=== PATIENT | male | born 1955 | race American Indian/Alaskan Native ===

== ENCOUNTER 2016-05-02 10:56 | Day surgery (SDC) | payer MEDICARE ==
[~2016-05-02 10:56] MED LIST: ANCEF/STERILE WATER 2 GM/20 ML 20 ML IV NR; NACL 0.9% 1000 ML 1,000 ML IV SCH
--- NOTE | 2016-05-02 11:51 | Anesthesia Consultation ---
Anesthesia Consult and Med Hx Date of service: 05/02/16 - Airway Anesthetic Teeth Evaluation: Good ROM Head & Neck: Adequate Mental/Hyoid Distance: Adequate Mallampati Class: Class II Intubation Access Assessment: Probably Good - Pulmonary Exam CTA: Yes - Cardiac Exam Cardiac Exam: RRR - Pre-Operative Health Status ASA Pre-Surgery Classification: ASA3 Proposed Anesthetic Plan: General, MAC - Pulmonary Hx Smoking: No Hx Sleep Apnea: No - Cardiovascular System Hx Hypertension: Yes (FOR 5+ YRS) - Central Nervous System Hx Psychiatric Problems: No - Endocrine Hx Renal Disease: Yes (HD //Thu) Hx End Stage Renal Disease: Yes (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
--- NOTE | 2016-05-02 11:52 | Anesthesia Day of Surgery ---
Anesthesia Day of Surgery - Day of Surgery Patient Examined: Yes Patient H&P Reviewed: Yes Patient is NPO: Yes
[2016-05-02] MEDS ORDERED: ZOFRAN IV PRN (11:53)
[2016-05-02] MEDS ORDERED: NORCO 5/325 PO PRN (11:53)
[2016-05-02] MEDS ORDERED: DILAUDID IV PRN (11:53)
[2016-05-02] MEDS ORDERED: VERSED IV NR (12:00)
[2016-05-02] MEDS ORDERED: PEPCID PO NR (12:00)
[2016-05-02] MEDS ORDERED: SUBLIMAZE ONE ×2 (12:54→12:55)
[2016-05-02] MEDS ORDERED: DIPRIVAN 10 MG/ML IV ONE (12:54)
[2016-05-02] MEDS ORDERED: XYLOCAINE MPF 2% ONE (12:58)
[2016-05-02] MEDS ORDERED: ROBINUL ONE (13:34)
[2016-05-02] MEDS ORDERED: NACL 0.9% IR ONE (13:57)
[2016-05-02] MEDS ORDERED: MARCAINE 0.5% INFILTRATI ONE (13:57)
--- NOTE | 2016-05-02 14:06 | Admit Criteria Form ---
Admission Criteria Documentation: AMBULATORY SURGERY EXCEPTION CRITERIA Ambulatory Surgery Exception Criteria ( Place 'X' for any and all applicable criteria): Surgery or procedure performed on ambulatory basis may require inpatient stay for[A] ANY ONE of the following(1)(2)(3)(4)(5)(6)(7)(8)(9): [X] I. A preoperative situation, condition, or finding that warrants inpatient stay as indicated by ANY ONE of the following: [X] a) Inpatient care needed because of severity of a disease or condition rather than the surgery (eg, severe cardiac or respiratory disease, severe infection) (15) (16 ) (17) (18) [] b) Emergent procedure (eg, angioplasty for acute ischemia)(19) [] c) Complex surgical approach or situation as indicated by ANY ONE of the following(3): [] i) Open approach needed instead of usual endoscopic, transcatheter, or other less invasive procedure [] ii) Difficult approach because of previous operation [] iii) Airway monitoring required after open neck procedures(20)(21) [] iv) Large mass requiring unusually extensive dissection [] v) Additional complicating feature requiring inpatient care (eg, drain management)(22(23): [] d) Major surgery in a pt with high anesthetic risk as indicated by ANY ONE of the following (2)(3)(5)(7)(8): [] i) ASA risk class III or higher (severe systemic disease impairing function) [D] [] ii) Advanced age (eg, older than 85 years)(14)(24) [] iii) Symptomatic heart failure(25) [] iv) Symptomatic asthma or COPD(8)(21) [] v) Morbid obesity with hemodynamic or respiratory problems(20)( 21)(26)(27) [] vi) Obstructive sleep apnea(20)(21) [] vii) Former premature infants who are younger than 60 weeks [] viii) High risk for severe postoperative abnormalities (eg, severe postoperative hypocalcemia after parathyroidectomy for severe hyperparathyroidism)(27)( 28) [] ix) Unstable angina(25) [] e) Drug-related risk requiring inpatient stay as indicated by ANY ONE of the following(5)(10)(14)(32)(33) [] i) Procedure requires discontinuing drugs or other therapy (eg , antiarrhythmic medication, antiseizure medication), which necessitates inpatient observation or treatment.(18)(31) [] ii) Major surgery and high risk drug use as indicated by ANY ONE of the following: [] 1) Active abuse of cocaine or similar drug [] 2) Monoamine oxidase inhibitor use [] 3) Other drug identified as posing risk [] f) Inadequate outpatient care situation as indicated by ANY ONE of the following(5)(10)(14)(32)(33) [] i) Patient lives remote from medical facility and procedure has urgent complication potential, and temporary nearby residence cannot be arranged [] ii) Patient will have postprocedure incapacitation and inadequate assistance at home, or alternative level of care cannot be arranged. [] iii) Patient will have long general anesthesia or procedure side effect resolution time, and competent person to stay with patient on first postoperative night at home or alternative level of care cannot be arranged. []iv) Other inadequate outpatient situation that cannot be handled by other means [] II. A perioperative event, condition, or finding that warrants inpatient stay as indicated by ANY ONE of the following (1)(2)(3): [] a) Inadequate physiologic recovery: cardiovascular, respiratory, or hemodynamic status not normal or near preoperative baseline(18) [] b) Hemodynamic instability [] c) Patient not alert with near normal or baseline mental status [] d) Temperature not normal or as expected and not appropriate for outpatient treatment of condition [] e) Ambulatory or appropriate activity level status not yet achieved post procedure [E](34)(35)(36) [] f) Operative site not appropriate (eg, unexpected or excessive drainage or bleeding) [] g) Postoperative effects not resolved or adequately managed (eg, significant pain or vomiting not appropriate for outpatient or next level of care)(10)(12) [] h) Complicating features requiring inpatient care as indicated by ANY ONE of the following(37): [] i) Severe complications of procedure (eg, bowel injury, airway compromise, vascular injury,severe hemorrhage) [] ii) Extensive (eg, dissection far beyond usual scope of procedure ) or prolonged (eg, 120 minutes beyond usual) surgery needed requiring inpatient postoperative care [] iii) Conversion to an open or complex procedure that requires inpatient care (eg, open vs laparoscopic cholecystectomy, abdominal vs vaginal hysterectomy)(38) [] iv) Comorbid condition or test result identified during or post procedure that requires inpatient care (7) [] v) Malignant hyperthermia(30) [] vi) Other complicating feature requiring inpatient care(22)(23) Inpatient stay may be needed until ALL of the following are present (1)(2)(3)(4) (5)(6)(10)(14)(33)(40): []a) Physiologic recovery: cardiovascular, respiratory, and hemodynamic status normal or near preoperative baseline []b) Hemodynamic stability []c) Patient alert, with near normal or baseline mental status []d) Temperature appropriate: patient afebrile or temperature appropriate for outpt treatment of condition []e) Activity level appropriate: ambulatory or appropriate activity level post procedure []f) Operative site appropriate as indicated by ALL of the following: []i) Site dry or with expected drainage []ii) Any blood noted is as expected for procedure. []g) Postoperative effects resolved or managed as indicated by ALL of the following: []i) Pain management appropriate for outpatient (or next level of) care(10) []ii) Minimal nausea and vomiting: if present, successfully treated with oral medication(12) []iii) Headache, dizziness, or drowsiness (if present) are mild. []h) Voiding status acceptable as indicated by ANY ONE of the following: []i) Voiding spontaneously []ii) No voiding but instructions given for follow-up in 6 to 8 hours []iii) Urinary catheter in place, and instructions given for follow-up []i) Complicating features requiring inpatient care manageable at a lower level of care(37) []j) Comorbid conditions manageable at a lower level of care(37) The original [employer] content created by [employer] has been revised. The portions of the content which have been revised are identified through the use of italic text or in bold, and [employer] has neither reviewed nor approved the modified material. All other unmodified content is copyright [employer]. Please see references footnoted in the original [employer] edition 2016 Admission Criteria Met: Yes
[2016-05-02] MEDS ORDERED: HEPARIN 10,000 UNITS/10 ML 1,000 UNIT in NACL 0.9% 250ML 250 ML IR ONE (14:23)
[2016-05-02] MEDS ORDERED: ePHEDrine SULFATE ONE (14:44)
[2016-05-02] MEDS ORDERED: ZOFRAN ONE (15:06)
--- NOTE | 2016-05-02 15:15 | Short Stay Summary ---
Short Stay Documentation Date of service: 05/02/16 Narrative H&P: See H&P - History H&P: obtained from office - Allergies and Medications Current Medications: Allergies No Known Allergies Allergy (Unverified 02/21/16 13:12) Home Medications Medication Instructions Recorded Confirmed Last Taken Type Gabapentin [Neurontin] 300 mg PO QDAY 02/21/16 05/02/16 05/01/16 History Insulin Aspart [NovoLOG Flexpen] 10 units SQ AC 02/21/16 05/02/16 05/01/16 History Insulin Glargine [Lantus] 20 units SQ QHS 02/21/16 05/02/16 05/01/16 History Calcium Acetate [Calcium Acetate] 05/02/16 05/01/16 History Procardia Xl 05/02/16 04/30/16 History cloNIDine 05/02/16 04/30/16 History Active Medications Famotidine (Pepcid) 20 mg PO PREOP NR Stop: 05/02/16 23:00 Last Admin: 05/02/16 12:30 Dose: 20 mg Hydromorphone HCl (Dilaudid) 0.5 mg IV Q10MIN PRN PRN Reason: Pain , Severe (7-10) Stop: 05/05/16 11:54 Cefazolin Sodium (Ancef/Sterile Water 2 Gm/20 Ml) 20 mls @ 80 mls/hr IV PREOP NR PRN Reason: Protocol Stop: 05/02/16 23:59 Sodium Chloride (Nacl 0.9% 1000 Ml) 1,000 mls @ 42 mls/hr IV DIRECT THOMAS Last Admin: 05/02/16 12:20 Dose: 42 mls/hr Midazolam HCl (Versed) 2 mg IV PREOP NR Stop: 05/02/16 23:59 Last Admin: 05/02/16 13:05 Dose: 2 mg - Brief post op/procedure progress note Date of procedure: 05/02/16 Pre-op diagnosis: ESRD Post-op diagnosis: same Procedure: Creation of left brachiobasilic AVF Anesthesia: DIANAA Surgeon: CHRISTOPHER LEE Estimated blood loss: 50-100ml Pathology: none Condition: stable - Disposition Condition at discharge: Good Disposition: DISCHARGED TO HOME OR SELFCARE Short Stay Discharge Plan Activity: other (No heavy lifting with left arm) Wound: open to air, keep clean and dry, other (okay to wash the wound with soap and water but do not soak in water) Follow up with: CHRISTOPHER LEE MD [Staff Physician] - 7 Days Prescriptions: HYDROcodone/APAP 7.5-325 [[place] 7.5/325] 1 each PO Q6HR PRN #60 tablet PRN Reason: Pain
--- NOTE | 2016-05-02 15:26 | Operative Report ---
Operative Report Operative Report: Date of procedure: 05/02/2016 Pre-operative diagnosis: End-stage Renal Disease Post-operative diagnosis: End-stage Renal Disease Procedure(s): Creation of Left Brachial Artery to Basilic Arteriovenous Fistula Surgeon: Edd Sales MD Monitor Worker: None Anesthesia: Gen. endotracheal anesthesia EBL: Minimal Counts: Correct Complications: None Condition: Stable Findings: Successful creation of left brachial basilic arteriovenous fistula. The fistula was patent however pulsatility in the fistula. Specimen: None Indication: The patient is a 60-year-old male with a history of end-stage renal disease was previously on dialysis distal brachial cephalic arteriovenous vessel. That is thrombosed and is not in need of long-term access. He was given the risks, benefits, and alternative procedures and consented to the procedure. Description of Procedure: The patient was brought to the operating room and laid in supine position after general endotracheal anesthesia was administered the patient was prepped and draped in normal sterile fashion. After anesthetizing the skin a transverse incision was created just below the antecubital crease. Dissection was carried down to the the basilic vein using sharp dissection. The vein was dissected out both proximally and distally and suture ligated and divided distally. I then ran a 3 Serjio proximally in the vein, to ensure patency of the vein. I then flushed the vein with heparinized saline and controlled flow with a bulldog clamp. I then dissected out the brachial artery through this incision circumferentially both proximal and distal and controlled th artery with vessel loops. I placed the vessel loops on tension, controlling the flow through the artery, and created an arteriotomy using an 11 blade and Bagi scissors. I created an end to side anastomosis between the basilic vein and brachial artery using a 6-0 Prolene in running fashion. Prior to completing the anastomosis I flushed the artery both proximally and distally and then advanced a 3 Serjio proximally to break the spasm in the artery. I completed the anastomosis and removed all vessel loops allowing flow into the fistula which had an excellent thrill. I achieved hemostasis with a combination of direct pressure and electrocautery. Once hemostasis was achieved I anesthetized the wound with Marcaine. I closed the wound in 2 layers using 3-0 Vicryl in a running fashion to close the deep dermal layer and 4-0 Monocryl in a running fashion in the subcuticular layer. I dressed the wound with Surgicel. The patient tolerated the procedure well, all sponge needle and instrument counts were correct. The patient was taken to recovery in stable condition.
--- NOTE | 2016-05-02 16:16 | Post Anesthesia Evaluation ---
- Post Anesthesia Evaluation Patient Participated: Yes Airway Patent: Yes Stable Respiratory Function: Yes Temp > 96.8F: Yes Pain Manageable: Yes Adequeate Hydration: Yes Anesthesia Complications: No Block Receding Appropriately: Not Applicable
[2016-05-02 18:20] VITALS: BP 145/78
== END 2016-05-02 19:00 | disposition home or self-care (01) ==
LOC: OR 10:56
PROVIDERS: ATTEND Surgery Vascular Surgery
DX: E11.22 Type 2 diabetes mellitus with diabetic chronic kidney disease (principal); I12.0 Hypertensive chronic kidney disease with stage 5 chronic kidney disease or end stage renal disease; N18.6 End stage renal disease; E78.00 Pure hypercholesterolemia, unspecified; D64.9 Anemia, unspecified; Z99.2 Dependence on renal dialysis; Z83.3 Family history of diabetes mellitus; Z98.890 Other specified postprocedural states; Z98.42 Cataract extraction status, left eye; Z98.41 Cataract extraction status, right eye
CPT/HCPCS: 36415; 36821; 82962; 84132; C1757; J0690; J1644; J2250; J2405; J2704; J3010; J7030; J7050

== ENCOUNTER 2016-07-21 06:56 | Day surgery (SDC) | payer MEDICARE ==
[~2016-07-21 06:56] MED LIST changes: +ANCEF/STERILE WATER 2 GM/20 ML 2 GM/20 ML SYRINGE IV NR; -ANCEF/STERILE WATER 2 GM/20 ML 20 ML IV NR; +PEPCID PO NR
[2016-07-21] MEDS ORDERED: ZOFRAN IV PRN (09:20)
[2016-07-21] MEDS ORDERED: DILAUDID IV PRN (09:20)
[2016-07-21] MEDS ORDERED: SUBLIMAZE IV NR (09:20)
[2016-07-21] MEDS ORDERED: VERSED IV NR (09:25)
--- NOTE | 2016-07-21 09:25 | Anesthesia Consultation ---
Anesthesia Consult and Med Hx Date of service: 07/21/16 - Airway Anesthetic Teeth Evaluation: Good ROM Head & Neck: Adequate Mental/Hyoid Distance: Adequate Mallampati Class: Class II Intubation Access Assessment: Probably Good - Pulmonary Exam CTA: Yes - Cardiac Exam Cardiac Exam: RRR - Pre-Operative Health Status ASA Pre-Surgery Classification: ASA4 Proposed Anesthetic Plan: MAC Nerve Block: supraclavicular - Pulmonary Hx Smoking: No Hx Asthma: No Hx Sleep Apnea: No - Cardiovascular System Hx Hypertension: Yes (FOR 5+ YRS) - Central Nervous System CVA: Yes (2011, no residual weakness) - Endocrine Hx Renal Disease: Yes Hx End Stage Renal Disease: Yes (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
--- NOTE | 2016-07-21 09:32 | Anesthesia Day of Surgery ---
Anesthesia Day of Surgery - Day of Surgery Patient Examined: Yes Patient H&P Reviewed: Yes Patient is NPO: Yes
[2016-07-21] MEDS ORDERED: MARCAINE-EPI 0.5%-1:200,000 INFILTRATI ONE (09:33)
[2016-07-21] MEDS ORDERED: DIPRIVAN 10 MG/ML IV ONE ×3 (11:27→12:17)
[2016-07-21] MEDS ORDERED: XYLOCAINE MPF 2% ONE (11:33)
[2016-07-21] MEDS ORDERED: HEPARIN 10,000 UNITS/10 ML 2,000 UNIT in NACL 0.9% 500 ML 500 ML IR ONE (12:02)
[2016-07-21] MEDS ORDERED: HEPARIN 10,000 UNITS/10 ML IV ONE (12:05)
[2016-07-21] MEDS ORDERED: NACL 0.9% IR ONE (12:06)
[2016-07-21] MEDS ORDERED: SODIUM BICARBONATE INFILTRATI ONE (12:06)
[2016-07-21] MEDS ORDERED: MARCAINE 0.5% INFILTRATI ONE (12:06)
[2016-07-21] MEDS ORDERED: XYLOCAINE 1%/ EPI 1:100,000 INFILTRATI ONE (12:07)
[2016-07-21] MEDS ORDERED: NACL 0.9% 500 ML IV ONE (12:07)
--- NOTE | 2016-07-21 13:17 | Short Stay Summary ---
Short Stay Documentation Date of service: 07/21/16 Narrative H&P: See H&P - History H&P: obtained from office - Allergies and Medications Current Medications: Allergies No Known Allergies Allergy (Unverified 02/21/16 13:12) Home Medications Medication Instructions Recorded Confirmed Last Taken Type Gabapentin [Neurontin] 300 mg PO QDAY 02/21/16 07/21/16 07/19/16 History Insulin Aspart [NovoLOG Flexpen] 10 units SQ AC 02/21/16 07/21/16 07/19/16 13: 00 History 12 UNITS Insulin Glargine [Lantus VIAL] 20 units SQ QHS 02/21/16 07/21/16 07/19/16 22:00 History 20 UNITS Calcium Acetate 667 mg PO QDAY 05/02/16 07/21/16 07/20/16 History Procardia Xl 30 mg PO QDAY 05/02/16 07/21/16 07/19/16 22:00 History Active Medications Famotidine (Pepcid) 20 mg PO PREOP NR Stop: 07/21/16 23:00 Last Admin: 07/21/16 09:24 Dose: 20 mg Fentanyl (Sublimaze) 100 mcg IV ONCE NR Stop: 07/21/16 18:00 Last Admin: 07/21/16 09:45 Dose: 50 mcg Hydromorphone HCl (Dilaudid) 0.25 mg IV Q10MIN PRN PRN Reason: Pain, Moderate (4-6) Stop: 07/21/16 18:00 Cefazolin Sodium (Ancef/Sterile Water 2 Gm/20 Ml) 2 gm in 20 mls @ 80 mls/hr IV PREOP NR PRN Reason: Protocol Stop: 07/21/16 23:59 Sodium Chloride (Nacl 0.9% 1000 Ml) 1,000 mls @ 42 mls/hr IV DIRECT THOMAS Last Admin: 07/21/16 09:30 Dose: 42 mls/hr Midazolam HCl (Versed) 2 mg IV PREOP NR Stop: 07/21/16 23:59 Last Admin: 07/21/16 09:45 Dose: 2 mg Ondansetron HCl (Zofran) 4 mg IV ONCE PRN PRN Reason: Nausea And Vomiting Stop: 07/21/16 18:00 - Brief post op/procedure progress note Date of procedure: 07/21/16 Pre-op diagnosis: End-Stage Renal Disease Post-op diagnosis: same Procedure: One Stage Creation of Left Brachial Basilic Arteriovenous Fistula Anesthesia: MAC, regional Surgeon: CHRISTOPHER LEE Estimated blood loss: minimal Pathology: none Condition: stable - Disposition Condition at discharge: Good Disposition: DISCHARGED TO HOME OR SELFCARE Short Stay Discharge Plan Activity: other (no heavy lifting with left arm) Wound: open to air, keep clean and dry, other (okay to wash the wound with soap and water but do not soak in water) Follow up with: CHRISTOPHER LEE MD [Staff Physician] - 14 Days Prescriptions: HYDROcodone/APAP 7.5-325 [[place] 7.5/325] 1 each PO Q6HR PRN #90 tablet PRN Reason: Pain
--- NOTE | 2016-07-21 13:26 | Operative Report ---
Operative Report Operative Report: Date of procedure: 07/21/2016 Pre-operative diagnosis: End-stage renal disease Post-operative diagnosis: Same Procedure(s): 1 stage Operation of Left Brachiobasilic AV Fistula Surgeon: Edd Sales MD [employer] Career Manager: None Anesthesia: Regional/MAC EBL: Minimal Counts: Correct Complications: None Condition: Stable Findings: Successful creation of left brachiobasilic fistula with excellent thrill. Specimen: None Indication: The patient is a 61-year-old male with a history of end-stage renal disease who had a previous creation of a left brachiobasilic arteriovenous fistula. The branch used to create the arterial anastomosis became sclerotic and thrombosed however the basilic vein remained patent. The patient was scheduled for creation of a brachiobasilic arteriovenous fistula however since the vein had previously had some arterial flow I felt that he would benefit from creation of a 1 stage procedure. He was given the risks, benefits, and alternative procedures and consented to procedure. Description of Procedure: The patient was brought to the operating room and laid in supine position after he was adequately sedated his left arm was prepped and draped in normal sterile fashion. A longitudinal incision was then created on the medial aspect of the arm centered over the fistula extending from the axillary crease to the antecubital crease. Sharp dissection was used to continue the dissection down to the basilic vein. The vein was then dissected circumferentially and all side branches were suture ligated and divided. A Miracle-Wick tunneler was then used to tunnel from the distal part of the incision towards the proximal portion of the incision and a lateral and slightly curved direction. The vein was then marked on the anterior surface, to prevent twisting , and the outflow was controlled with bulldog clamps. The brachial artery was dissected circumferentially at the distal portion of the incision and controlled with vascular loops. The vein was secured to the Miracle-Wick tunneler with 2-0 silk and then pulled retrograde through the tunnel. I flushed the venous outflow with heparinized saline to assure that there was no evidence of twist or kinks. I then performed an end-to-side anastomosis between the basilic vein and the brachial artery using 6-0 Prolene in running fashion. Prior to completing the anastomosis I flushed the artery as well as the vein to ensure there was no clot or debris. I then completed the anastomosis and removed all clamps allowing flow through the fistula which had an excellent thrill. I achieved hemostasis in the wound with a combination of direct pressure and the clot. I then closed the wound in 2 layers using a 3-0 Vicryl in running fashion in the deep dermal layer and a 4-0 Monocryl in running fashion in the subcuticular. I then dressed the wound with Surgicel. The patient tolerated the procedure well , all sponge needle and instrument counts were correct, the patient was taken to the recovery area in stable condition.
--- NOTE | 2016-07-21 14:07 | Post Anesthesia Evaluation ---
- Post Anesthesia Evaluation Patient Participated: Yes Airway Patent: Yes Stable Respiratory Function: Yes Temp > 96.8F: Yes Pain Manageable: Yes (Pain free) Adequeate Hydration: Yes Anesthesia Complications: No Block Receding Appropriately: Not Applicable
[2016-07-21 16:10] VITALS: BP 163/97
--- NOTE | 2016-07-22 01:42 | Admit Criteria Form ---
Admission Criteria Documentation: AMBULATORY SURGERY EXCEPTION CRITERIA Ambulatory Surgery Exception Criteria ( Place 'X' for any and all applicable criteria): Surgery or procedure performed on ambulatory basis may require inpatient stay for[A] ANY ONE of the following(1)(2)(3)(4)(5)(6)(7)(8)(9): [X] I. A preoperative situation, condition, or finding that warrants inpatient stay as indicated by ANY ONE of the following: [] a) Inpatient care needed because of severity of a disease or condition rather than the surgery (eg, severe cardiac or respiratory disease, severe infection) (15) (16 ) (17) (18) [] b) Emergent procedure (eg, angioplasty for acute ischemia)(19) [] c) Complex surgical approach or situation as indicated by ANY ONE of the following(3): [] i) Open approach needed instead of usual endoscopic, transcatheter, or other less invasive procedure [] ii) Difficult approach because of previous operation [] iii) Airway monitoring required after open neck procedures(20)(21) [] iv) Large mass requiring unusually extensive dissection [] v) Additional complicating feature requiring inpatient care (eg, drain management)(22(23): [X] d) Major surgery in a pt with high anesthetic risk as indicated by ANY ONE of the following (2)(3)(5)(7)(8): [X] i) ASA risk class III or higher (severe systemic disease impairing function) [D] [] ii) Advanced age (eg, older than 85 years)(14)(24) [] iii) Symptomatic heart failure(25) [] iv) Symptomatic asthma or COPD(8)(21) [] v) Morbid obesity with hemodynamic or respiratory problems(20)( 21)(26)(27) [] vi) Obstructive sleep apnea(20)(21) [] vii) Former premature infants who are younger than 60 weeks [] viii) High risk for severe postoperative abnormalities (eg, severe postoperative hypocalcemia after parathyroidectomy for severe hyperparathyroidism)(27)( 28) [] ix) Unstable angina(25) [] e) Drug-related risk requiring inpatient stay as indicated by ANY ONE of the following(5)(10)(14)(32)(33) [] i) Procedure requires discontinuing drugs or other therapy (eg , antiarrhythmic medication, antiseizure medication), which necessitates inpatient observation or treatment.(18)(31) [] ii) Major surgery and high risk drug use as indicated by ANY ONE of the following: [] 1) Active abuse of cocaine or similar drug [] 2) Monoamine oxidase inhibitor use [] 3) Other drug identified as posing risk [] f) Inadequate outpatient care situation as indicated by ANY ONE of the following(5)(10)(14)(32)(33) [] i) Patient lives remote from medical facility and procedure has urgent complication potential, and temporary nearby residence cannot be arranged [] ii) Patient will have postprocedure incapacitation and inadequate assistance at home, or alternative level of care cannot be arranged. [] iii) Patient will have long general anesthesia or procedure side effect resolution time, and competent person to stay with patient on first postoperative night at home or alternative level of care cannot be arranged. []iv) Other inadequate outpatient situation that cannot be handled by other means [] II. A perioperative event, condition, or finding that warrants inpatient stay as indicated by ANY ONE of the following (1)(2)(3): [] a) Inadequate physiologic recovery: cardiovascular, respiratory, or hemodynamic status not normal or near preoperative baseline(18) [] b) Hemodynamic instability [] c) Patient not alert with near normal or baseline mental status [] d) Temperature not normal or as expected and not appropriate for outpatient treatment of condition [] e) Ambulatory or appropriate activity level status not yet achieved post procedure [E](34)(35)(36) [] f) Operative site not appropriate (eg, unexpected or excessive drainage or bleeding) [] g) Postoperative effects not resolved or adequately managed (eg, significant pain or vomiting not appropriate for outpatient or next level of care)(10)(12) [] h) Complicating features requiring inpatient care as indicated by ANY ONE of the following(37): [] i) Severe complications of procedure (eg, bowel injury, airway compromise, vascular injury,severe hemorrhage) [] ii) Extensive (eg, dissection far beyond usual scope of procedure ) or prolonged (eg, 120 minutes beyond usual) surgery needed requiring inpatient postoperative care [] iii) Conversion to an open or complex procedure that requires inpatient care (eg, open vs laparoscopic cholecystectomy, abdominal vs vaginal hysterectomy)(38) [] iv) Comorbid condition or test result identified during or post procedure that requires inpatient care (7) [] v) Malignant hyperthermia(30) [] vi) Other complicating feature requiring inpatient care(22)(23) Inpatient stay may be needed until ALL of the following are present (1)(2)(3)(4) (5)(6)(10)(14)(33)(40): []a) Physiologic recovery: cardiovascular, respiratory, and hemodynamic status normal or near preoperative baseline []b) Hemodynamic stability []c) Patient alert, with near normal or baseline mental status []d) Temperature appropriate: patient afebrile or temperature appropriate for outpt treatment of condition []e) Activity level appropriate: ambulatory or appropriate activity level post procedure []f) Operative site appropriate as indicated by ALL of the following: []i) Site dry or with expected drainage []ii) Any blood noted is as expected for procedure. []g) Postoperative effects resolved or managed as indicated by ALL of the following: []i) Pain management appropriate for outpatient (or next level of) care(10) []ii) Minimal nausea and vomiting: if present, successfully treated with oral medication(12) []iii) Headache, dizziness, or drowsiness (if present) are mild. []h) Voiding status acceptable as indicated by ANY ONE of the following: []i) Voiding spontaneously []ii) No voiding but instructions given for follow-up in 6 to 8 hours []iii) Urinary catheter in place, and instructions given for follow-up []i) Complicating features requiring inpatient care manageable at a lower level of care(37) []j) Comorbid conditions manageable at a lower level of care(37) The original [employer] content created by [employer] has been revised. The portions of the content which have been revised are identified through the use of italic text or in bold, and [facility] [employer] has neither reviewed nor approved the modified material. All other unmodified content is copyright [employer]. Please see references footnoted in the original [employer] edition 2016 Admission Criteria Met: Yes
== END 2016-07-21 17:09 | disposition home or self-care (01) ==
LOC: OR 06:56
PROVIDERS: ATTEND Surgery Vascular Surgery
DX: T82.868A Thrombosis due to vascular prosthetic devices, implants and grafts, initial encounter (principal); E11.22 Type 2 diabetes mellitus with diabetic chronic kidney disease; I12.0 Hypertensive chronic kidney disease with stage 5 chronic kidney disease or end stage renal disease; N18.6 End stage renal disease; D64.9 Anemia, unspecified; Z99.2 Dependence on renal dialysis; Z98.890 Other specified postprocedural states; Z72.89 Other problems related to lifestyle; Z79.4 Long term (current) use of insulin; Z79.899 Other long term (current) drug therapy; Z86.73 Personal history of transient ischemic attack (TIA), and cerebral infarction without residual deficits; Y83.2 Surgical operation with anastomosis, bypass or graft as the cause of abnormal reaction of the patient, or of later complication, without mention of misadventure at the time of the procedure
CPT/HCPCS: 36415; 36819; 64450; 82962; 84132; C1757; J0690; J1644; J2250; J2704; J3010; J7030; J7040; J1815

== ENCOUNTER 2018-09-19 19:12 | Emergency (ER) | payer MEDICARE ==
--- NOTE | 2018-09-19 19:22 | Emergency Department Report ---
- General Stated Complaint: CHEST PAIN Time Seen by Provider: 09/19/18 19:17 Source: patient - History of Present Illness Initial Comments: 63-year-old male presents to ED with URI symptoms 3 weeks. Patient reports cough, chest pain only with cough. Denies fever. History of ESRD, last dialyzed yesterday. Patient states has been using OTC meds for the cough, but has not been helping. MD Complaint: cough -: week(s) (3) Severity: moderate Consistency: intermittent Improves With: OTC cold medicine Worsens With: nothing Associated Symptoms: cough, chest pain (with cough), shortness of breath. denies: fever, chills Treatments Prior to Arrival: "cold medicine" - Related Data Home Medications Medication Instructions Recorded Confirmed Last Taken Gabapentin [Neurontin] 300 mg PO QDAY 02/21/16 07/21/16 07/19/16 Insulin Aspart [NovoLOG Flexpen] 10 units SQ AC 02/21/16 07/21/16 07/19/16 13:00 12 UNITS Insulin Glargine [Lantus VIAL] 20 units SQ QHS 02/21/16 07/21/16 07/19/16 22:00 20 UNITS Calcium Acetate 667 mg PO QDAY 05/02/16 07/21/16 07/20/16 Procardia Xl 30 mg PO QDAY 05/02/16 07/21/16 07/19/16 22:00 Previous Rx's Medication Instructions Recorded Last Taken Type HYDROcodone/APAP 7.5-325 [[place] 1 each PO Q6HR PRN #90 tablet 07/21/16 Unknown Rx 7.5/325] Albuterol Sulfate [Proventil Hfa] 2 puff IH Q4HR PRN #1 hfa.aer.ad 09/19/18 Unknown Rx Benzonatate [Tessalon Perles] 100 mg PO Q8HR PRN #20 capsule 09/19/18 Unknown Rx traMADol [Ultram] 50 mg PO Q6HR PRN #7 tablet 09/19/18 Unknown Rx Allergies Allergy/AdvReac Type Severity Reaction Status Date / Time No Known Allergies Allergy Unverified 02/21/16 13:12 ED Review of Systems ROS: Stated complaint: CHEST PAIN Other details as noted in HPI Comment: All other systems reviewed and negative Constitutional: denies: chills, fever Respiratory: cough, shortness of breath Cardiovascular: chest pain (with cough only) ED Past Medical Hx - Past Medical History Hx Hypertension: Yes (FOR 5+ YRS) Hx Diabetes: Yes (FOR 20+ YRS) Hx Deep Vein Thrombosis: Yes (left upper AV graft) Hx Renal Disease: Yes Hx Headaches / Migraines: Yes Hx Asthma: No Hx HIV: No - Social History Smoking Status: Never Smoker - Medications Home Medications: Home Medications Medication Instructions Recorded Confirmed Last Taken Type Gabapentin [Neurontin] 300 mg PO QDAY 02/21/16 07/21/16 07/19/16 History Insulin Aspart [NovoLOG Flexpen] 10 units SQ AC 02/21/16 07/21/16 07/19/16 13:00 History 12 UNITS Insulin Glargine [Lantus VIAL] 20 units SQ QHS 02/21/16 07/21/16 07/19/16 22:00 History 20 UNITS Calcium Acetate 667 mg PO QDAY 05/02/16 07/21/16 07/20/16 History Procardia Xl 30 mg PO QDAY 05/02/16 07/21/16 07/19/16 22:00 History HYDROcodone/APAP 7.5-325 [[place] 1 each PO Q6HR PRN #90 tablet 07/21/16 Unknown Rx 7.5/325] Albuterol Sulfate [Proventil Hfa] 2 puff IH Q4HR PRN #1 hfa.aer.ad 09/19/18 Unknown Rx Benzonatate [Tessalon Perles] 100 mg PO Q8HR PRN #20 capsule 09/19/18 Unknown Rx traMADol [Ultram] 50 mg PO Q6HR PRN #7 tablet 09/19/18 Unknown Rx ED Physical Exam - General General appearance: alert, in no apparent distress - Head Head exam: Present: atraumatic, normocephalic - Eye Eye exam: Present: normal appearance - ENT ENT exam: Present: mucous membranes moist - Neck Neck exam: Present: normal inspection - Respiratory Respiratory exam: Present: rhonchi, chest wall tenderness. Absent: respiratory distress - Cardiovascular Cardiovascular Exam: Present: regular rate, normal rhythm - GI/Abdominal GI/Abdominal exam: Present: soft. Absent: distended, tenderness - Extremities Exam Extremities exam: Present: normal inspection - Neurological Exam Neurological exam: Present: alert, oriented X3 - Psychiatric Psychiatric exam: Present: normal affect, normal mood - Skin Skin exam: Present: warm, dry, intact, normal color ED Course Vital Signs 09/19/18 09/19/18 09/19/18 19:18 19:19 19:24 Temperature 99.1 F 99.1 F Pulse Rate 74 72 72 Respiratory 16 22 18 Rate Blood Pressure 154/84 Blood Pressure 129/72 [Right] O2 Sat by Pulse 100 96 100 Oximetry 09/19/18 09/19/18 09/19/18 19:34 19:45 20:00 Temperature Pulse Rate 71 69 Respiratory 11 L 11 L Rate Blood Pressure 129/72 124/60 124/60 Blood Pressure [Right] O2 Sat by Pulse 97 99 100 Oximetry 09/19/18 20:16 Temperature Pulse Rate 70 Respiratory 23 Rate Blood Pressure 112/58 Blood Pressure [Right] O2 Sat by Pulse 100 Oximetry ED Medical Decision Making - Radiology Data Radiology results: report reviewed, image reviewed - Medical Decision Making Cough, chest congestion x 3 weeks. Pt afebrile, O2 sats normal on room air, no respiratory distress. CXR shows no evidence of pneumonia or pulm edema. Pt given rx for albuterol, tessalon, and ultram. Return precautions given. Advised to f/u w/ PCP - Differential Diagnosis pneumonia, pulm edema, bronchitis Critical care attestation.: If time is entered above; I have spent that time in minutes in the direct care of this critically ill patient, excluding procedure time. ED Disposition Clinical Impression: Bronchitis Disposition: DC-01 TO HOME OR SELFCARE Is pt being admited?: No Condition: Stable Instructions: Acute Bronchitis (ED) Prescriptions: Albuterol Sulfate [Proventil Hfa] 2 puff IH Q4HR PRN #1 hfa.aer.ad PRN Reason: Wheezing Benzonatate [Tessalon Perles] 100 mg PO Q8HR PRN #20 capsule PRN Reason: Cough traMADol [Ultram] 50 mg PO Q6HR PRN #7 tablet PRN Reason: Pain Referrals: DREA WEING MD [Primary Care Provider] - 3-5 Days PRIMARY CAREMD [Referring] - 3-5 Days Time of Disposition: 20:11
--- NOTE | 2018-09-19 19:49 | XRay Report ---
PROCEDURE: XR CHEST ROUTINE 2V TECHNIQUE: PA and lateral chest radiographs were obtained. HISTORY: cough COMPARISONS: None. FINDINGS: Frontal and lateral views of the chest were acquired and demonstrate that the heart is mild ly large. There is prominence of perihilar markings which could represent viral pneumonitis or bronch itis. There is no consolidative infiltrate. IMPRESSION: Cardiomegaly Mild prominence of perihilar markings, likely viral pneumonitis or bronchitis This document is electronically signed by Ryan Montemayor MD., Sep 19 2018 07:47:55 PM ET
[2018-09-19 20:24] VITALS: BP 112/58
== END 2018-09-19 20:39 | disposition home or self-care (01) ==
LOC: ED 19:12
DX: J40 Bronchitis, not specified as acute or chronic (principal); G43.909 Migraine, unspecified, not intractable, without status migrainosus; I10 Essential (primary) hypertension; E11.9 Type 2 diabetes mellitus without complications; Z87.442 Personal history of urinary calculi; Z79.4 Long term (current) use of insulin
CPT/HCPCS: 71046; 99283

== ENCOUNTER 2018-09-26 07:09 | Inpatient (IN) | payer MEDICARE ==
[2018-09-26] MEDS ORDERED: ROBITUSSIN AC PO ONE (08:37)
--- NOTE | 2018-09-26 08:39 | Emergency Department Report ---
ED General Adult HPI - General Chief complaint: Dyspnea/Respdistress Stated complaint: CLAUDIA Time Seen by Provider: 09/26/18 08:05 Source: EMS Mode of arrival: Ambulatory Limitations: No Limitations - History of Present Illness Initial comments: The patient presents to the emergency department with a chief complaint of a cough that has been persistent for the last month. Patient is also a hemodialysis patient who is dialysis days are Thursday, , Thursday. Patient states he is taking medications for his cough to no avail over the last month. Patient denies chest pain, headache, abdominal pain -: Gradual Severity scale (0 -10): 0 Consistency: constant Improves with: none Worsens with: none Associated Symptoms: denies other symptoms Treatments Prior to Arrival: none - Related Data Home Medications Medication Instructions Recorded Confirmed Last Taken Gabapentin [Neurontin] 300 mg PO QDAY 02/21/16 07/21/16 07/19/16 Insulin Aspart [NovoLOG Flexpen] 10 units SQ AC 02/21/16 07/21/16 07/19/16 13:00 12 UNITS Insulin Glargine [Lantus VIAL] 20 units SQ QHS 02/21/16 07/21/16 07/19/16 22:00 20 UNITS Calcium Acetate 667 mg PO QDAY 05/02/16 07/21/16 07/20/16 Procardia Xl 30 mg PO QDAY 05/02/16 07/21/16 07/19/16 22:00 Previous Rx's Medication Instructions Recorded Last Taken Type HYDROcodone/APAP 7.5-325 [[place] 1 each PO Q6HR PRN #90 tablet 07/21/16 Unknown Rx 7.5/325] Albuterol Sulfate [Proventil Hfa] 2 puff IH Q4HR PRN #1 hfa.aer.ad 09/19/18 Unknown Rx Benzonatate [Tessalon Perles] 100 mg PO Q8HR PRN #20 capsule 09/19/18 Unknown Rx traMADol [Ultram] 50 mg PO Q6HR PRN #7 tablet 09/19/18 Unknown Rx Allergies Allergy/AdvReac Type Severity Reaction Status Date / Time No Known Allergies Allergy Unverified 02/21/16 13:12 ED Review of Systems ROS: Stated complaint: CLAUDIA Other details as noted in HPI Comment: All other systems reviewed and negative Constitutional: denies: chills, fever Eyes: denies: eye pain, eye discharge, vision change ENT: denies: ear pain, throat pain Respiratory: cough. denies: shortness of breath, wheezing Cardiovascular: denies: chest pain, palpitations Endocrine: no symptoms reported Gastrointestinal: denies: abdominal pain, nausea, diarrhea Genitourinary: denies: urgency, dysuria Musculoskeletal: denies: back pain, joint swelling, arthralgia Skin: denies: rash, lesions Neurological: denies: headache, weakness, paresthesias Psychiatric: denies: anxiety, depression Hematological/Lymphatic: denies: easy bleeding, easy bruising ED Past Medical Hx - Past Medical History Hx Hypertension: Yes (FOR 5+ YRS) Hx Diabetes: Yes (FOR 20+ YRS) Hx Deep Vein Thrombosis: Yes (left upper AV graft) Hx Renal Disease: Yes Hx Headaches / Migraines: Yes Hx Asthma: No Hx HIV: No - Surgical History Additional Surgical History: left arm fistula - Social History Smoking Status: Never Smoker - Medications Home Medications: Home Medications Medication Instructions Recorded Confirmed Last Taken Type Gabapentin [Neurontin] 300 mg PO QDAY 02/21/16 07/21/16 07/19/16 History Insulin Aspart [NovoLOG Flexpen] 10 units SQ AC 02/21/16 07/21/16 07/19/16 13:00 History 12 UNITS Insulin Glargine [Lantus VIAL] 20 units SQ QHS 02/21/16 07/21/16 07/19/16 22:00 History 20 UNITS Calcium Acetate 667 mg PO QDAY 05/02/16 07/21/16 07/20/16 History Procardia Xl 30 mg PO QDAY 05/02/16 07/21/16 07/19/16 22:00 History HYDROcodone/APAP 7.5-325 [[place] 1 each PO Q6HR PRN #90 tablet 07/21/16 Unknown Rx 7.5/325] Albuterol Sulfate [Proventil Hfa] 2 puff IH Q4HR PRN #1 hfa.aer.ad 09/19/18 Unknown Rx Benzonatate [Tessalon Perles] 100 mg PO Q8HR PRN #20 capsule 09/19/18 Unknown Rx traMADol [Ultram] 50 mg PO Q6HR PRN #7 tablet 09/19/18 Unknown Rx ED Physical Exam - General Limitations: No Limitations General appearance: alert, in no apparent distress - Head Head exam: Present: atraumatic, normocephalic - Eye Eye exam: Present: normal appearance, PERRL, EOMI - ENT ENT exam: Present: mucous membranes moist - Neck Neck exam: Present: normal inspection - Respiratory Respiratory exam: Present: normal lung sounds bilaterally, rales. Absent: respiratory distress - Cardiovascular Cardiovascular Exam: Present: regular rate, normal rhythm. Absent: systolic murmur, diastolic murmur, rubs, gallop - GI/Abdominal GI/Abdominal exam: Present: soft, normal bowel sounds. Absent: distended, tenderness - Rectal Rectal exam: Present: deferred - Extremities Exam Extremities exam: Present: normal inspection - Back Exam Back exam: Present: normal inspection - Neurological Exam Neurological exam: Present: alert, oriented X3, CN II-XII intact. Absent: motor sensory deficit - Psychiatric Psychiatric exam: Present: normal affect, normal mood - Skin Skin exam: Present: warm, dry, intact, normal color. Absent: rash ED Course Vital Signs 09/26/18 09/26/18 09/26/18 07:19 08:30 09:47 Temperature 98.5 F Pulse Rate 83 79 Respiratory 18 18 18 Rate Blood Pressure 153/84 Blood Pressure 152/86 [Right] O2 Sat by Pulse 94 94 94 Oximetry ED Medical Decision Making - Lab Data Result diagrams: 09/26/18 08:46 09/26/18 08:46 Lab Results 09/26/18 09/26/18 Range/Units 08:46 08:46 WBC 5.6 (4.5-11.0) K/mm3 RBC 3.62 L (3.65-5.03) M/mm3 Hgb 10.5 L (11.8-15.2) gm/dl Hct 31.6 L (35.5-45.6) % MCV 87 (84-94) fl MCH 29 (28-32) pg MCHC 33 (32-34) % RDW 17.5 H (13.2-15.2) % Plt Count 238 (140-440) K/mm3 Lymph % (Auto) 17.3 (13.4-35.0) % [place] % (Auto) 10.4 H (0.0-7.3) % Eos % (Auto) 2.9 (0.0-4.3) % Baso % (Auto) 0.7 (0.0-1.8) % Lymph # 1.0 L (1.2-5.4) K/mm3 [place] # 0.6 (0.0-0.8) K/mm3 Eos # 0.2 (0.0-0.4) K/mm3 Baso # 0.0 (0.0-0.1) K/mm3 Seg Neutrophils % 68.7 (40.0-70.0) % Seg Neutrophils # 3.9 (1.8-7.7) K/mm3 Sodium 139 (137-145) mmol/L Potassium 4.2 (3.6-5.0) mmol/L Chloride 96.8 L (98-107) mmol/L Carbon Dioxide 28 (22-30) mmol/L Anion Gap 18 mmol/L BUN 30 H (9-20) mg/dL Creatinine 7.0 H (0.8-1.5) mg/dL Estimated GFR 10 ml/min BUN/Creatinine Ratio 4 % Glucose 213 H (75-100) mg/dL Calcium 8.0 L (8.4-10.2) mg/dL Total Bilirubin 0.40 (0.1-1.2) mg/dL AST 32 (5-40) units/L ALT 27 (7-56) units/L Alkaline Phosphatase 143 H (35-129) units/L NT-Pro-B Natriuret Pep 66625 H (0-900) pg/mL Total Protein 7.6 (6.3-8.2) g/dL Albumin 3.5 L (3.9-5) g/dL Albumin/Globulin Ratio 0.9 % - EKG Data -: EKG Interpreted by Me EKG shows normal: sinus rhythm Rate: normal - Radiology Data Radiology results: report reviewed Critical care attestation.: If time is entered above; I have spent that time in minutes in the direct care of this critically ill patient, excluding procedure time. ED Disposition Clinical Impression: Pneumonia Disposition: OP ADMIT IP TO THIS HOSP Is pt being admited?: Yes Does the pt Need Aspirin: No Condition: Fair Instructions: Bacterial Pneumonia (ED) Referrals: DREA EWING MD [Primary Care Provider] - 3-5 Days
[2018-09-26 09:17] LABS: Basophils % (Auto) 0.7 % (0.0-1.8); Eosinophils # (Auto) 0.2 K/mm3 (0.0-0.4); Eosinophils % (Auto) 2.9 % (0.0-4.3); Hematocrit 31.6 % (35.5-45.6); Hemoglobin 10.5 gm/dl (11.8-15.2); Lymphocytes % (Auto) 17.3 % (13.4-35.0); Mean Corpuscular HGB Conc 33 % (32-34); Mean Corpuscular Volume 87 fl (84-94); Monocytes # (Auto) 0.6 K/mm3 (0.0-0.8); Monocytes % (Auto) 10.4 % (0.0-7.3); Platelet Count 238 K/mm3 (140-440); Red Blood Count 3.62 M/mm3 (3.65-5.03); Red Cell Distribution Width 17.5 % (13.2-15.2)
[2018-09-26 09:24] LABS: Albumin 3.5 g/dL (3.9-5)
--- NOTE | 2018-09-26 09:38 | XRay Report ---
PROCEDURE: XR CHEST ROUTINE 2V TECHNIQUE: Chest, 2 views HISTORY: cough COMPARISON: 09/19/2018 FINDINGS: Heart size is upper normal.. There is no pulmonary vascular congestion seen. Mediastinal contours are normal. There is hazy increased density in the left lower lung. Left heart border is partially obscured. Ther e is interstitial thickening which is concerning for interstitial edema. There is no pleural effusion seen. There is no pneumothorax seen. IMPRESSION: Appearance suggests interstitial infiltrate/edema. Suspect additional alveolar infiltrate in the lingula and/or left lower lobe.. This document is electronically signed by Nichole Llamas MD., September 26 2018 10:36:17 AM ET
[2018-09-26] MEDS ORDERED: VANCOMYCIN PHARMACY TO DOSE IV SCH (12:00)
--- NOTE | 2018-09-26 12:00 | History and Physical Report ---
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 Pt states that he has experienced shortness of breath, productive cough of yellow sputum over the past month, with worsening symptoms over the past weak. Pt states that he feels tired, and does not have " a lot of energy". Pt acknowledges subjective fever, but denes chlls, CP, Palpitations, NVD, Trauma, BRBPR, unintentional weight loss, night sweats, prolonged travel/immobility, unilateral leg swelling, calf pain, hemoptysis, or recent ill contacts. EMS notified, and upon arrival the patient was found to be in distress. Pt transported to [facility]. Pt seen and evaluated in ED and found to have symptoms consistent with Pneumonia, ESRD, as well as Bronchitis. Pt initiated on Pneumonia protocol and admitted to medical floor. Nephrology consulted in ED. Previous admission on 12/17/11 reviewed, All listed medication reconciled at time of admission. Past History Past Medical History: diabetes, DVT, ESRD, hypertension, migraines Past Surgical History: Other (LUE AVF) Social history: , lives with family. denies: smoking, alcohol abuse, prescription drug abuse Family history: hypertension Medications and Allergies Allergies Allergy/AdvReac Type Severity Reaction Status Date / Time No Known Allergies Allergy Unverified 02/21/16 13:12 Home Medications Medication Instructions Recorded Confirmed Last Taken Type Gabapentin [Neurontin] 300 mg PO QDAY 02/21/16 07/21/16 07/19/16 History Insulin Aspart [NovoLOG Flexpen] 10 units SQ AC 02/21/16 07/21/16 07/19/16 13:00 History 12 UNITS Insulin Glargine [Lantus VIAL] 20 units SQ QHS 02/21/16 07/21/16 07/19/16 22:00 History 20 UNITS Calcium Acetate 667 mg PO QDAY 05/02/16 07/21/16 07/20/16 History Procardia Xl 30 mg PO QDAY 05/02/16 07/21/16 07/19/16 22:00 History HYDROcodone/APAP 7.5-325 [[place] 1 each PO Q6HR PRN #90 tablet 07/21/16 Unknown Rx 7.5/325] Albuterol Sulfate [Proventil Hfa] 2 puff IH Q4HR PRN #1 hfa.aer.ad 09/19/18 Unknown Rx Benzonatate [Tessalon Perles] 100 mg PO Q8HR PRN #20 capsule 09/19/18 Unknown Rx traMADol [Ultram] 50 mg PO Q6HR PRN #7 tablet 09/19/18 Unknown Rx Active Meds: Active Medications Vancomycin HCl 2,000 mg/ (Sodium Chloride) 540 mls @ 333 mls/hr IV ONCE ONE; Protocol Stop: 09/26/18 13:35 Ceftriaxone Sodium (Rocephin/Ns 2 Gm/100 Ml) 2 gm in 100 mls @ 200 mls/hr IV Q12HR [facility]OMAS; Protocol Review of Systems Constitutional: fever, weakness, no weight loss, no weight gain Ears, nose, mouth and throat: no ear pain, no ear discharge, no tinnitis, no decreased hearing, no nose pain Cardiovascular: no chest pain, no orthopnea, no palpitations, no rapid/irregular heart beat, no edema, no syncope Respiratory: cough, cough with sputum, shortness of breath, no dyspnea on exertion, no congestion Gastrointestinal: no nausea, no vomiting, no diarrhea, no constipation Genitourinary Male: no hematuria, no flank pain, no discharge, no urinary frequency, no urinary hesitancy Rectal: no pain, no incontinence, no bleeding Musculoskeletal: no neck stiffness, no neck pain, no shooting arm pain, no arm numbness/tingling, no low back pain, no shooting leg pain Integumentary: no rash, no pruritis, no sores, no wounds Neurological: no transient paralysis, no paralysis, no weakness, no parathesias, no numbness, no seizures Psychiatric: no anxiety, no memory loss, no change in sleep habits, no sleep disturbances, no hypersomnia, no change in appetite, no change in libido, no suicidal ideation Endocrine: no cold intolerance, no heat intolerance, no polyphagia, no excessive thirst, no polydipsia, no polyuria, no nocturia, no excessive sweating Hematologic/Lymphatic: no easy bruising, no easy bleeding, no lymphadenopathy, no lymphedema Allergic/Immunologic: no urticaria, no allergic rhinitis, no wheezing, no persistent infections, no anaphylaxis, no angioedema Exam - Constitutional Vitals: Temp Pulse Resp BP Pulse Ox 98.5 F 79 18 152/86 94 09/26/18 07:19 09/26/18 09:47 09/26/18 09:47 09/26/18 09:47 09/26/18 09:47 General appearance: Present: mild distress - EENT Eyes: Present: PERRL ENT: hearing intact, clear oral mucosa - Neck Neck: Present: supple, normal ROM - Respiratory Respiratory effort: normal Respiratory: bilateral: diminished, rhonchi - Cardiovascular Heart Sounds: Present: S1 & S2. Absent: rub, click - Extremities Extremities: pulses symmetrical, No edema Peripheral Pulses: within normal limits - Abdominal General gastrointestinal: Present: soft, non-tender, non-distended, normal bowel sounds Male genitourinary: Present: normal - Integumentary Integumentary: Present: clear, warm, dry - Musculoskeletal Musculoskeletal: gait normal, strength equal bilaterally - Psychiatric Psychiatric: appropriate mood/affect, intact judgment & insight - Neurologic Neurologic: CNII-XII intact, moves all extremities Results - Labs CBC & Chem 7: 09/26/18 08:46 09/26/18 08:46 Labs: Abnormal lab results 09/26/18 09/26/18 Range/Units 08:46 08:46 RBC 3.62 L (3.65-5.03) M/mm3 Hgb 10.5 L (11.8-15.2) gm/dl Hct 31.6 L (35.5-45.6) % RDW 17.5 H (13.2-15.2) % [place] % (Auto) 10.4 H (0.0-7.3) % Lymph # 1.0 L (1.2-5.4) K/mm3 Chloride 96.8 L (98-107) mmol/L BUN 30 H (9-20) mg/dL Creatinine 7.0 H (0.8-1.5) mg/dL Glucose 213 H (75-100) mg/dL Calcium 8.0 L (8.4-10.2) mg/dL Alkaline Phosphatase 143 H (35-129) units/L NT-Pro-B Natriuret Pep 18277 H (0-900) pg/mL Albumin 3.5 L (3.9-5) g/dL Assessment and Plan - Patient Problems (1) Pneumonia Current Visit: Yes Status: Acute Plan to address problem: Pneumonia Protocol: IV antibiotic therapy, chest X ray, CT chest, blood cultures, CBC, supplemental oxygen, nebulizer therapy (2) ESRD (end stage renal disease) Current Visit: Yes Status: Acute Plan to address problem: Nephrology consulted in ED, strict I/O, monitor uop q shift, avoid nephrotoxic agents. (3) HTN (hypertension) Current Visit: Yes Status: Acute Qualifiers: Hypertension type: essential hypertension Qualified Code(s): I10 - Essential (primary) hypertension Plan to address problem: Monitor bp q shift, supportive care. (4) Diabetes Current Visit: Yes Status: Acute Plan to address problem: ADA diet, insulin accu check (5) Bronchitis Current Visit: No Status: Acute Plan to address problem: IV antibiotic therapy, IV steroid therapy, supplemental oxygen, nebulizer therapy, NIPPV as clinically indicated. (6) Cardiomyopathy Current Visit: Yes Status: Acute Plan to address problem: Echo, BNP, monitor uop q shift, (7) DVT prophylaxis Current Visit: Yes Status: Acute Plan to address problem: SCD to BLE while in bed, prophylactic
[2018-09-26] MEDS ORDERED: TYLENOL PO PRN (12:07)
[2018-09-26] MEDS ORDERED: ZOFRAN IV PRN (12:07)
[2018-09-26] MEDS ORDERED: SODIUM CHLORIDE FLUSH SYRINGE 10 ML IV PRN (12:07)
[2018-09-26] MEDS ORDERED: ROCEPHIN/NS 1 GM/50 ML 2 GM/100 ML BAG IV ONE (12:29)
[2018-09-26] MEDS: ROCEPHIN/NS 2 GM/100 ML 2 GM/100 ML BAG IV SCH ×2 (12:30→13:11)
[2018-09-26] MEDS ORDERED: NORCO 7.5/325 PO PRN (12:34)
[2018-09-26] MEDS ORDERED: ULTRAM PO PRN (12:34)
[2018-09-26] MEDS ORDERED: VANCOMYCIN 2,000 MG in NACL 0.9% 500 ML 500 ML IV ONE (13:00)
[2018-09-26] MEDS: HYDROMET PO PRN (14:24)
--- NOTE | 2018-09-26 15:05 | Cat Scan Report ---
PROCEDURE: CT CHEST WO CON TECHNIQUE: Computerized axial tomography of the chest was performed without contrast material. This study is performed without intravenous contrast and the sensitivity for pathology, including neoplasm s, adenopathy, abscess, pulmonary embolism and aortic dissection, is reduced. CT DOSE LENGTH PRODUCT: 1100 mGycm HISTORY: pneumonia COMPARISONS: Radiograph 09/26/2018 . FINDINGS: Heart and pericardium: Heart is mildly prominent. There is a small pericardial effusion, measuring 13 mm in thickness inferiorly. Thoracic aorta: Normal. Pulmonary vasculature: Normal. Lymph nodes: Borderline sized left axillary lymph nodes. Lungs: There are diffuse bilateral geographic pattern groundglass attenuation opacities in the perih ilar regions. Small patchy area of airspace consolidation the left lower lobe. There is atelectasis a butting the left pericardium and abutting bilateral pleural effusions. Pleural space: Small layering bilateral pleural effusions, right greater than left. Musculoskeletal structures: No significant abnormality. Upper abdominal structures: No significant abnormality. IMPRESSION: Bilateral geographic groundglass airspace opacities. Patchy airspace consolidation in the left lower lobe. Findings are nonspecific and can be seen with pulmonary edema related to congestive heart failu re. More focal airspace consolidation left lower lobe could also be related to pulmonary edema or inf ectious process/pneumonia. There is prominent heart size and bilateral pleural effusions, which can be seen with congestive hear t failure This document is electronically signed by Kim Malcolm MD., September 26 2018 04:03:31 PM ET
[2018-09-26] MEDS ORDERED: NON-FORMULARY (Insulin Aspart [Novolog Flexpen] 10 UNITS) SQ SCH (16:30)
[2018-09-26] MEDS: HumaLOG SUB-Q SCH (18:45)
[2018-09-26] MEDS: TESSALON PERLES PO PRN (18:54)
[2018-09-26] MEDS: SOLU-Medrol IV SCH (22:26)
[2018-09-26] MEDS: PEPCID PO SCH (22:26)
[2018-09-26] MEDS: LANTUS SUB-Q SCH (22:26)
[2018-09-26] MEDS: SODIUM CHLORIDE FLUSH SYRINGE 10 ML IV SCH (22:27)
[2018-09-27] MEDS: ROCEPHIN/NS 2 GM/100 ML 2 GM/100 ML BAG IV SCH ×2 (01:06→13:40)
[2018-09-27 05:37] LABS: Hematocrit 32.9 % (35.5-45.6); Mean Corpuscular HGB Conc 33 % (32-34); Mean Corpuscular Volume 87 fl (84-94); Platelet Count 265 K/mm3 (140-440); Red Blood Count 3.79 M/mm3 (3.65-5.03); Red Cell Distribution Width 17.5 % (13.2-15.2)
[2018-09-27 06:02] LABS: Calcium 7.8 mg/dL (8.4-10.2)
[2018-09-27 08:21] LABS: Basophils % (Manual) 0 % (0.0-1.8); Eosinophils % (Manual) 0 % (0.0-4.3); Total Cells Counted 100
[2018-09-27 08:22] LABS: Anisocytosis 1+; Giant Platelets Rare; Large Platelets Few; Macrocytosis Few; Platelet Estimate Consistent w Auto; Poikilocytosis Few
[2018-09-27] MEDS: HumaLOG SUB-Q SCH ×3 (08:42→17:42)
[2018-09-27] MEDS ORDERED: PROCARDIA 30 MG PO SCH (10:00)
[2018-09-27] MEDS: PEPCID PO SCH ×2 (10:04→21:55)
[2018-09-27] MEDS: PHOSLO PO SCH (10:04)
[2018-09-27] MEDS: NEURONTIN PO SCH (10:04)
[2018-09-27] MEDS: PROCARDIA XL PO SCH (10:04)
[2018-09-27] MEDS: SODIUM CHLORIDE FLUSH SYRINGE 10 ML IV SCH ×2 (10:05→22:48)
[2018-09-27] MEDS: SOLU-Medrol IV SCH ×2 (10:05→21:55)
--- NOTE | 2018-09-27 11:04 | Consultation ---
History of Present Illness - Reason for Consult Consult date: 09/27/18 end stage renal disease Requesting physician: EDILSON HOBBS - History of Present Illness This is a 63 yo AAM with past medical history of hypertension, ESRD on HD on TTS schedule, anemia of ESRD, secondary hyperparathyroidism, who presents to [facility] ER with complaints of shortness of breath, productive cough of yellow sputum over the past month, with worsening symptoms over the past weak, along with subjective fever, but denes chlls, CP, Palpitations, NVD, BRBPR, unintentional weight loss, night sweats, prolonged travel/immobility, unilateral leg swelling, calf pain, hemoptysis, or recent ill contacts. in ER CT chest was performed which showed findings consistent with LLL pneumonia. pt was admitted for IV ABX treatment and renal consult is requested for management of ESRD/HD Past History Past Medical History: diabetes, DVT, ESRD, hypertension, migraines Past Surgical History: Other (LUE AVF) Social history: , lives with family. denies: smoking, alcohol abuse, prescription drug abuse Family history: hypertension Medications and Allergies Allergies Allergy/AdvReac Type Severity Reaction Status Date / Time No Known Allergies Allergy Unverified 02/21/16 13:12 Home Medications Medication Instructions Recorded Confirmed Last Taken Type Gabapentin [Neurontin] 300 mg PO QDAY 02/21/16 07/21/16 07/19/16 History Insulin Aspart [NovoLOG Flexpen] 10 units SQ AC 02/21/16 07/21/16 07/19/16 13:00 History 12 UNITS Insulin Glargine [Lantus VIAL] 20 units SQ QHS 02/21/16 07/21/16 07/19/16 22:00 History 20 UNITS Calcium Acetate 667 mg PO QDAY 05/02/16 07/21/16 07/20/16 History Procardia Xl 30 mg PO QDAY 05/02/16 07/21/16 07/19/16 22:00 History HYDROcodone/APAP 7.5-325 [[place] 1 each PO Q6HR PRN #90 tablet 07/21/16 Unknown Rx 7.5/325] Albuterol Sulfate [Proventil Hfa] 2 puff IH Q4HR PRN #1 hfa.aer.ad 09/19/18 Unknown Rx Benzonatate [Tessalon Perles] 100 mg PO Q8HR PRN #20 capsule 09/19/18 Unknown Rx traMADol [Ultram] 50 mg PO Q6HR PRN #7 tablet 09/19/18 Unknown Rx Active Meds: Active Medications Acetaminophen (Tylenol) 650 mg PO Q4H PRN PRN Reason: Pain MILD(1-3)/Fever >100.5/GARCÍA Acetaminophen/Hydrocodone Bitart ([place] 7.5/325) 1 each PO Q6HR PRN PRN Reason: Pain Benzonatate (Tessalon Perles) 100 mg PO Q8H PRN PRN Reason: Cough Last Admin: 09/26/18 18:54 Dose: 100 mg Documented by: Calcium Acetate (Phoslo) 667 mg PO QDDIAB [facility] Last Admin: 09/27/18 10:04 Dose: 667 mg Documented by: Famotidine (Pepcid) 10 mg PO BID [facility] Last Admin: 09/27/18 10:04 Dose: 10 mg Documented by: Gabapentin (Neurontin) 300 mg PO QDAY [facility] Last Admin: 09/27/18 10:04 Dose: 300 mg Documented by: Hydrocodone Bit/Homatropine Methylb (Hydromet) 10 ml PO Q6H PRN PRN Reason: Cough Last Admin: 09/26/18 14:24 Dose: 10 ml Documented by: Ceftriaxone Sodium (Rocephin/Ns 2 Gm/100 Ml) 2 gm in 100 mls @ 200 mls/hr IV Q12H [facility]; Protocol Last Admin: 09/27/18 01:06 Dose: 200 mls/hr Documented by: Insulin Glargine (Lantus) 20 units SUB-Q QHS [facility] Last Admin: 09/26/18 22:26 Dose: 20 units Documented by: Insulin Human Lispro (Humalog) 10 unit SUB-Q [facility] Last Admin: 09/27/18 08:42 Dose: Not Given Documented by: Methylprednisolone Sodium Succinate (Solu-Medrol) 20 mg IV Q12HR [facility] Last Admin: 09/27/18 10:05 Dose: 20 mg Documented by: Nifedipine (Procardia Xl) 30 mg PO QDAY [facility] Last Admin: 09/27/18 10:04 Dose: 30 mg Documented by: Ondansetron HCl (Zofran) 4 mg IV Q8H PRN PRN Reason: Nausea And Vomiting Sodium Chloride (Sodium Chloride Flush Syringe 10 Ml) 10 ml IV BID [facility]OM[facility] Last Admin: 09/27/18 10:05 Dose: 10 ml Documented by: Sodium Chloride (Sodium Chloride Flush Syringe 10 Ml) 10 ml IV PRN PRN PRN Reason: LINE FLUSH Tramadol HCl (Ultram) 50 mg PO Q6HR PRN PRN Reason: Pain Review of Systems All systems: negative Constitutional: fever, fatigue, weakness, malaise Respiratory: cough with sputum, shortness of breath Exam - Vital Signs Vital signs: Vital Signs Temp Pulse Resp BP Pulse Ox 98.5 F 83 18 153/84 94 09/26/18 07:19 09/26/18 07:19 09/26/18 07:19 09/26/18 07:19 09/26/18 07:19 - General Appearance General appearance: well-developed, well-nourished, appears stated age EENT: ATNC, PERRL, mucous membranes moist Neck: Present: neck supple Respiratory: Decreased Breath Sounds (L base ) Heart: regular, S1S2 Gastrointestinal: Present: normoactive bowel sounds Integumentary: no rash, other (no edema ) Neurologic: no focal deficit, alert and oriented x3, strength 5/5, CN 3-12 intact Psychiatric: mood/affect appropriate, cooperative Results - Lab Results 09/27/18 05:09 09/27/18 05:09 Most recent lab results Calcium 7.8 mg/dL (8.4-10.2) L 09/27/18 05:09 Assessment and Plan - Patient Problems (1) Pneumonia Current Visit: Yes Status: Acute Plan to address problem: cont IV ABXs with ceftriaxone, no renal adjustment needed. (2) ESRD (end stage renal disease) Current Visit: Yes Status: Acute Plan to address problem: no urgent indication for renal replacement therapy at present. cont HD on TTS schedule. (3) Anemia in ESRD (end-stage renal disease) Current Visit: Yes Status: Acute Plan to address problem: hb at target, no need for additional EPO at present (4) HTN (hypertension) Current Visit: Yes Status: Acute Qualifiers: Hypertension type: essential hypertension Qualified Code(s): I10 - Esse ntial (primary) hypertension Plan to address problem: BP stable, resume home BP regimen (5) Secondary hyperparathyroidism (of renal origin) Current Visit: Yes Status: Acute Plan to address problem: resume home PO4 binders
--- NOTE | 2018-09-27 16:30 | Progress Note ---
Assessment and Plan (1) Pneumonia Current Visit: Yes Status: Acute Plan to address problem: Pneumonia Protocol: Cont IV antibiotic therapy (2) ESRD (end stage renal disease) Current Visit: Yes Status: Acute Plan to address problem: Cont HD as per schedule (3) HTN (hypertension) Current Visit: Yes Status: Acute Qualifiers: Hypertension type: essential hypertension Qualified Code(s): I10 - Essential (primary) hypertension Plan to address problem: Cont antihypertensives (4) Diabetes Current Visit: Yes Status: Acute Plan to address problem: ADA diet, insulin accu check Adjusted Insulin dosage (5) Bronchitis Current Visit: No Status: Acute Plan to address problem: IV antibiotic therapy, IV steroid therapy, supplemental oxygen, nebulizer therapy, NIPPV as clinically indicated. (6) Cardiomyopathy Current Visit: Yes Status: Acute Plan to address problem: Check Echo for EF and Valve function (7) DVT prophylaxis Current Visit: Yes Status: Acute Plan to address problem: Heparin 5000 q12h Subjective Date of service: 09/27/18 Principal diagnosis: CAP Interval history: 63 YO Male with ESRD on HD(T,R,Sa),DM, Migraine Headache, LUE DVT currently not on anticoagulation presents to ED for evaluation. Pt states that he has experienced shortness of breath, productive cough of yellow sputum over the past month, with worsening symptoms over the past weak. Pt states that he feels tired, and does not have enough energy.. Pt acknowledges subjective fever, but denes chlls, CP, Palpitations, NVD, Trauma, BRBPR, unintentional weight loss, night sweats, prolonged travel/immobility, unilateral leg swelling, calf pain, hemoptysis, or recent ill contacts.Patient found to have symptoms consistent with Pneumonia, ESRD, as well as Bronchitis. Pt initiated on Pneumonia protocol and admitted to medical floor. Nephrology consulted in ED. Previous admission on 12/17/11 reviewed, Objective - Constitutional Vitals: Vital Signs - 12hr 09/27/18 09/27/18 09/27/18 05:22 10:07 11:57 Temperature 98.1 F 97.6 F Pulse Rate 82 80 Respiratory 22 18 20 Rate Blood Pressure 156/84 131/63 129/60 O2 Sat by Pulse 90 91 Oximetry 09/27/18 13:50 Temperature Pulse Rate Respiratory Rate Blood Pressure O2 Sat by Pulse 95 Oximetry General appearance: Present: no acute distress, well-nourished - EENT Eyes: PERRL, EOM intact ENT: hearing intact, clear oral mucosa Ears: bilateral: normal - Neck Neck: supple, normal ROM - Respiratory Respiratory effort: normal Respiratory: bilateral: CTA, rales (Scattered) - Breasts Breasts: deferred - Cardiovascular Heart rate: 78 Rhythm: regular Heart Sounds: Present: S1 & S2. Absent: gallop, rub Extremities: pulses intact, No edema, normal color, Full ROM - Gastrointestinal General gastrointestinal: Present: soft, non-tender, non-distended, normal bowel sounds Rectal Exam: deferred - Genitourinary Male genitourinary: normal - Integumentary Integumentary: clear, warm, dry - Musculoskeletal Musculoskeletal: 1, strength equal bilaterally - Neurologic Neurologic: moves all extremities - Psychiatric Psychiatric: memory intact, appropriate mood/affect, intact judgment & insight - Allied health notes Allied health notes reviewed: nursing, case management - Labs CBC & Chem 7: 09/27/18 05:09 09/27/18 05:09 Labs: Abnormal lab results 09/26/18 09/27/18 09/27/18 Range/Units 16:56 05:09 05:09 Hgb 11.0 L (11.8-15.2) gm/dl Hct 32.9 L (35.5-45.6) % RDW 17.5 H (13.2-15.2) % Seg Neuts % (Manual) 96.0 H (40.0-70.0) % Lymphocytes % (Manual) 3.0 L (13.4-35.0) % Seg Neutrophils # Man 8.3 H (1.8-7.7) K/mm3 Lymphocytes # (Manual) 0.3 L (1.2-5.4) K/mm3 BUN 36 H (9-20) mg/dL Creatinine 8.1 H (0.8-1.5) mg/dL POC Glucose 122 H (70-105) Calcium 7.8 L (8.4-10.2) mg/dL
[2018-09-27] MEDS: HYDROMET PO PRN (17:40)
[2018-09-27] MEDS ORDERED: DULCOLAX PR PRN (18:04)
[2018-09-27] MEDS: LANTUS SUB-Q SCH (22:02)
[2018-09-28] MEDS: ROCEPHIN/NS 2 GM/100 ML 2 GM/100 ML BAG IV SCH ×2 (00:52→14:41)
[2018-09-28 05:15] LABS: Basophils % (Auto) 0.6 % (0.0-1.8); Eosinophils % (Auto) 0.1 % (0.0-4.3); Hematocrit 31.4 % (35.5-45.6); Hemoglobin 10.5 gm/dl (11.8-15.2); Lymphocytes # (Auto) 0.4 K/mm3 (1.2-5.4); Mean Corpuscular HGB Conc 34 % (32-34); Mean Corpuscular Volume 87 fl (84-94); Monocytes # (Auto) 0.4 K/mm3 (0.0-0.8); Monocytes % (Auto) 5.3 % (0.0-7.3); Platelet Count 260 K/mm3 (140-440); Red Blood Count 3.62 M/mm3 (3.65-5.03); Red Cell Distribution Width 17.4 % (13.2-15.2)
[2018-09-28 05:39] LABS: Albumin 3.7 g/dL (3.9-5)
[2018-09-28] MEDS: HumaLOG SUB-Q SCH ×3 (08:12→17:56)
[2018-09-28] MEDS ORDERED: NACL 0.9% 100 ML IV PRN (08:59)
[2018-09-28] MEDS ORDERED: ROCEPHIN/NS 2 GM/100 ML 2 GM/100 ML BAG IV SCH (09:00)
[2018-09-28] MEDS: SODIUM CHLORIDE FLUSH SYRINGE 10 ML IV SCH ×2 (10:13→22:30)
--- NOTE | 2018-09-28 11:09 | Progress Note ---
Assessment and Plan - Patient Problems (1) Pneumonia Current Visit: Yes Status: Acute Plan to address problem: cont IV ABXs with ceftriaxone, no renal adjustment needed. (2) ESRD (end stage renal disease) Current Visit: Yes Status: Acute Plan to address problem: no urgent indication for renal replacement therapy at present. cont HD on TTS schedule. (3) Anemia in ESRD (end-stage renal disease) Current Visit: Yes Status: Acute Plan to address problem: hb at target, no need for additional EPO at present (4) HTN (hypertension) Current Visit: Yes Status: Acute Qualifiers: Hypertension type: essential hypertension Qualified Code(s): I10 - Essential (primary) hypertension Plan to address problem: BP stable, resume home BP regimen (5) Secondary hyperparathyroidism (of renal origin) Current Visit: Yes Status: Acute Plan to address problem: resume home PO4 binders Subjective Date of service: 09/28/18 Principal diagnosis: CAP Interval history: Pt seen during HD, awake, alert, still c/o productive cough, but denies fever, chills, n/v/d Objective - Vital Signs Vital signs: Vital Signs - 12hr 09/28/18 04:38 Temperature 98.4 F Pulse Rate 67 Respiratory 20 Rate Blood Pressure 136/79 O2 Sat by Pulse 96 Oximetry - General Appearance General appearance: well-developed, well-nourished, appears stated age EENT: ATNC, PERRL, mucous membranes moist Respiratory: Present: Ronchi Cardiology: regular, S1S2 Gastrointestinal: normoactive bowel sounds Integumentary: no rash, other (no edema ) Neurologic: no focal deficit, alert and oriented x3, strength 5/5, CN 3-12 intact Psychiatric: mood/affect appropriate, cooperative - Lab 09/28/18 04:53 09/28/18 04:53 Most recent lab results Calcium 8.0 mg/dL (8.4-10.2) L 09/28/18 04:53 Medications & Allergies - Medications Allergies/Adverse Reactions: Allergies No Known Allergies Allergy (Unverified 02/21/16 13:12) Home Medications: Home Medications Medication Instructions Recorded Confirmed Last Taken Type Insulin Aspart [NovoLOG Flexpen] 10 units SQ AC 02/21/16 09/27/18 09/25/18 History Insulin Glargine [Lantus VIAL] 20 units SQ QHS 02/21/16 09/27/18 09/25/18 History Active Medications: Generic Name Dose Route Start Last Admin Trade Name Freq PRN Reason Stop Dose Admin Acetaminophen 650 mg 09/26/18 12:07 Tylenol PO Q4H PRN Pain MILD(1-3)/Fever >100.5/GARCÍA Acetaminophen/Hydrocodone Bitart 1 each 09/26/18 12:34 [place] 7.5/325 PO Q6HR PRN Pain Benzonatate 100 mg 09/26/18 13:00 09/26/18 18:54 Tessalon Perles PO 100 mg Q8H PRN Administration Cough Bisacodyl 10 mg 09/27/18 18:04 Dulcolax NV QDAY PRN Constipation Calcium Acetate 667 mg 09/27/18 10:00 09/27/18 10:04 Phoslo PO 667 mg QDDIAB THOMAS Administration Famotidine 10 mg 09/26/18 22:00 09/27/18 21:55 Pepcid PO 10 mg BID THOMAS Administration Gabapentin 300 mg 09/27/18 10:00 09/27/18 10:04 Neurontin PO 300 mg QDAY [facility]OMAS Administration Hydrocodone Bit/Homatropine Methylb 10 ml 09/26/18 13:00 09/27/18 17:40 Hydromet PO 10 ml Q6H PRN Administration Cough Ceftriaxone Sodium 2 gm in 100 mls @ 200 mls/hr 09/28/18 10:00 Rocephin/Ns 2 Gm/100 Ml IV Q24HR [facility]OMAS Sodium Chloride 100 mls @ 999 mls/hr 09/28/18 08:59 Nacl 0.9% IV PEG PRN Hypotension Insulin Glargine 20 units 09/26/18 22:00 09/27/18 22:02 Lantus SUB-Q 20 units QHS THOMAS Administration Insulin Human Lispro 10 unit 09/26/18 16:30 09/27/18 17:42 Humalog SUB-Q 10 unit AC THOMAS Administration Methylprednisolone Sodium Succinate 20 mg 09/26/18 22:00 09/27/18 21:55 Solu-Medrol IV 20 mg Q12HR THOMAS Administration Nifedipine 30 mg 09/27/18 10:00 09/27/18 10:04 Procardia Xl PO 30 mg QDAY THOMAS Administration Ondansetron HCl 4 mg 09/26/18 12:07 Zofran IV Q8H PRN Nausea And Vomiting Sodium Chloride 10 ml 09/26/18 22:00 09/27/18 22:48 Sodium Chloride Flush Syringe 10 Ml IV 10 ml BID THOMAS Administration Sodium Chloride 10 ml 09/26/18 12:07 Sodium Chloride Flush Syringe 10 Ml IV PRN PRN LINE FLUSH Tramadol HCl 50 mg 09/26/18 12:34 Ultram PO Q6HR PRN Pain
[2018-09-28] MEDS ORDERED: VANCOMYCIN/NS 1 GM/250 ML 1 GM/250 ML BAG IV SCH (13:00)
[2018-09-28 13:01] LABS: Hepatitis B Surface Antigen Non-Reactive (Negative); Hepatitis C Virus Antibody Non-Reactive (NonReactive)
--- NOTE | 2018-09-28 13:18 | Progress Note ---
Assessment and Plan Assessment and plan: Patient is a 63 yo man with a history of ESRD on HD (T,R,Sa), DM, Migraine Headache and chronic LUE DVT not on anticoagulation who presented to [facility] ED with shortness of breath and productive cough of yellow sputum * CT chest wo contrast IMPRESSION: Bilateral geographic groundglass airspace opacities. Patchy airspace consolidation in the left lower lobe. Findings are nonspecific and can be seen with pulmonary edema related to congestive heart failure. More focal airspace consolidation left lower lobe could also be related to pulmonary edema or infectious process/pneumonia. There is prominent heart size and bilateral pleural effusions, which can be seen with congestive heart failure * 2D ECHO Conclusions: global LV systolic function is normal, est ef 55-60%, moderate to severe concentric LVH, left atrium mildly dilated, right heart chambers both mildly dilated, mild TR, evidence of mild pulmonary hypertension, RVSP calculated at 35 mmHG, trivial pericardial effusion * 2v CXR Impression: Apperance suggests interstitial infiltrate/edema, suspect additional alveolar infiltrate in the lingula and/or left lower lobe -Pneumonia, LLL Current Visit: Yes Status: Acute Plan to address problem: Pneumonia Protocol: Cont IV antibiotic therapy - ESRD (end stage renal disease) Current Visit: Yes Status: Acute Plan to address problem: Cont HD as per schedule -HTN (hypertension) Current Visit: Yes Status: Acute Qualifiers: Hypertension type: essential hypertension Qualified Code(s): I10 - Essential (primary) hypertension Plan to address problem: Cont antihypertensives - Diabetes Current Visit: Yes Status: Acute Plan to address problem: ADA diet, insulin accu check Adjusted Insulin dosage -Cardiomyopathy Current Visit: Yes Status: Acute Plan to address problem: Check Echo for EF and Valve function, see above -DVT prophylaxis Current Visit: Yes Status: Acute Plan to address problem: Heparin 5000 q12h -Constipated give dulcolax suppository Disposition: continue inpatient care, anticipate discharge tomorrow. History Interval history: Patient was seen and examined. Follow-up on current diagnosis of Pneumonia. No overnight events reported to me. Patient denies any chest pain, shortness breath , nausea/vomiting or severe headaches. Imaging, nursing note, chart, labs and old chart reviewed. Discussed with patient. Hospitalist Physical - Physical exam Narrative exam: Gen: WDWN, NAD, Awake, Alert, Orientated x 3 HEENT: NCAT, EOMI, PERRL, OP Clear Neck: supple, no adenopathy, no thyromegaly, no JVD CVS/Heart: RRR, normal S1S2, pulses present bilaterally Chest/Lungs: diminished bs bilateral, Symmetrical chest exddfpansion, good air entry bilaterally GI/Abdomen: soft, NTND, good bowel sounds, no guarding or rebound /Bladder: no suprapubic tenderness, no CVA or paraspinal tenderness Extermity/Skin: left upper arm swelling, AVF present, no obvious rash MSK: FROM x 4 Neuro: CN 2-12 grossly intact, no new focal deficits Psych: calm - Constitutional Vitals: Temp Pulse Resp BP Pulse Ox 98.4 F 67 18 136/79 96 09/28/18 04:38 09/28/18 04:38 09/28/18 10:00 09/28/18 04:38 09/28/18 04:38 General appearance: Present: no acute distress, well-nourished Results - Labs CBC & Chem 7: 09/28/18 04:53 09/28/18 04:53 Labs: Laboratory Last Values WBC 6.9 K/mm3 (4.5-11.0) 09/28/18 04:53 RBC 3.62 M/mm3 (3.65-5.03) L 09/28/18 04:53 Hgb 10.5 gm/dl (11.8-15.2) L 09/28/18 04:53 Hct 31.4 % (35.5-45.6) L 09/28/18 04:53 MCV 87 fl (84-94) 09/28/18 04:53 MCH 29 pg (28-32) 09/28/18 04:53 MCHC 34 % (32-34) 09/28/18 04:53 RDW 17.4 % (13.2-15.2) H 09/28/18 04:53 Plt Count 260 K/mm3 (140-440) 09/28/18 04:53 Lymph % (Auto) 6.0 % (13.4-35.0) L 09/28/18 04:53 Towns % (Auto) 5.3 % (0.0-7.3) 09/28/18 04:53 Eos % (Auto) 0.1 % (0.0-4.3) 09/28/18 04:53 Baso % (Auto) 0.6 % (0.0-1.8) 09/28/18 04:53 Lymph # 0.4 K/mm3 (1.2-5.4) L 09/28/18 04:53 Towns # 0.4 K/mm3 (0.0-0.8) 09/28/18 04:53 Eos # 0.0 K/mm3 (0.0-0.4) 09/28/18 04:53 Baso # 0.0 K/mm3 (0.0-0.1) 09/28/18 04:53 Add Manual Diff Complete 09/27/18 05:09 Total Counted 100 09/27/18 05:09 Seg Neutrophils % 88.0 % (40.0-70.0) H 09/28/18 04:53 Seg Neuts % (Manual) 96.0 % (40.0-70.0) H 09/27/18 05:09 0 % 09/27/18 05:09 3.0 % (13.4-35.0) L 09/27/18 05:09 Reactive Lymphs % (Man) 0 % 09/27/18 05:09 1.0 % (0.0-7.3) 09/27/18 05:09 0 % (0.0-4.3) 09/27/18 05:09 0 % (0.0-1.8) 09/27/18 05:09 0 % 09/27/18 05:09 0 % 09/27/18 05:09 0 % 09/27/18 05:09 0 % 09/27/18 05:09 Nucleated RBC % Not Reportable 09/27/18 05:09 Seg Neutrophils # 6.0 K/mm3 (1.8-7.7) 09/28/18 04:53 Seg Neutrophils # Man 8.3 K/mm3 (1.8-7.7) H 09/27/18 05:09 Band Neutrophils # 0.0 K/mm3 09/27/18 05:09 0.3 K/mm3 (1.2-5.4) L 09/27/18 05:09 Abs React Lymphs (Man) 0.0 K/mm3 09/27/18 05:09 0.1 K/mm3 (0.0-0.8) 09/27/18 05:09 0.0 K/mm3 (0.0-0.4) 09/27/18 05:09 0.0 K/mm3 (0.0-0.1) 09/27/18 05:09 0.0 K/mm3 09/27/18 05:09 0.0 K/mm3 09/27/18 05:09 0.0 K/mm3 09/27/18 05:09 Blast Cells # 0.0 K/mm3 09/27/18 05:09 WBC Morphology Not Reportable 09/27/18 05:09 Hypersegmented Neuts Not Reportable 09/27/18 05:09 Hyposegmented Neuts Not Reportable 09/27/18 05:09 Hypogranular Neuts Not Reportable 09/27/18 05:09 Not Reportable 09/27/18 05:09 Not Reportable 09/27/18 05:09 Not Reportable 09/27/18 05:09 Not Reportable 09/27/18 05:09 Not Reportable 09/27/18 05:09 Not Reportable 09/27/18 05:09 Consistent w auto 09/27/18 05:09 Not Reportable 09/27/18 05:09 Plt Clumps, EDTA Not Reportable 09/27/18 05:09 Few 09/27/18 05:09 Rare 09/27/18 05:09 Not Reportable 09/27/18 05:09 Plt Morphology Comment Not Reportable 09/27/18 05:09 RBC Morphology Not Reportable 09/27/18 05:09 Dimorphic RBCs Not Reportable 09/27/18 05:09 Not Reportable 09/27/18 05:09 Not Reportable 09/27/18 05:09 Few 09/27/18 05:09 1+ 09/27/18 05:09 Not Reportable 09/27/18 05:09 Few 09/27/18 05:09 Not Reportable 09/27/18 05:09 Not Reportable 09/27/18 05:09 Not Reportable 09/27/18 05:09 Not Reportable 09/27/18 05:09 Not Reportable 09/27/18 05:09 Not Reportable 09/27/18 05:09 Not Reportable 09/27/18 05:09 Not Reportable 09/27/18 05:09 Not Reportable 09/27/18 05:09 Not Reportable 09/27/18 05:09 Not Reportable 09/27/18 05:09 Not Reportable 09/27/18 05:09 Not Reportable 09/27/18 05:09 Acanthocytes (Spur) Not Reportable 09/27/18 05:09 Rouleaux Not Reportable 09/27/18 05:09 Not Reportable 09/27/18 05:09 Not Reportable 09/27/18 05:09 Not Reportable 09/27/18 05:09 Not Reportable 09/27/18 05:09 Hem Pathologist Commnt No 09/27/18 05:09 Sodium 137 mmol/L (137-145) 09/28/18 04:53 Potassium 4.5 mmol/L (3.6-5.0) 09/28/18 04:53 Chloride 96.1 mmol/L (98-107) L 09/28/18 04:53 Carbon Dioxide 25 mmol/L (22-30) 09/28/18 04:53 20 mmol/L 09/28/18 04:53 BUN 55 mg/dL (9-20) H 09/28/18 04:53 9.6 mg/dL (0.8-1.5) H 09/28/18 04:53 Estimated GFR 7 ml/min 09/28/18 04:53 6 % 09/28/18 04:53 Glucose 233 mg/dL (75-100) H 09/28/18 04:53 POC Glucose 210 (70-105) H 09/28/18 07:52 Lactic Acid 1.10 mmol/L (0.7-2.0) 09/26/18 14:48 Calcium 8.0 mg/dL (8.4-10.2) L 09/28/18 04:53 0.20 mg/dL (0.1-1.2) 09/28/18 04:53 AST 19 units/L (5-40) 09/28/18 04:53 ALT 23 units/L (7-56) 09/28/18 04:53 135 units/L (35-129) H 09/28/18 04:53 NT-Pro-B Natriuret Pep 27493 pg/mL (0-900) H 09/26/18 08:46 7.7 g/dL (6.3-8.2) 09/28/18 04:53 3.7 g/dL (3.9-5) L 09/28/18 04:53 0.9 % 09/28/18 04:53 Hepatitis A IgM Ab Non-reactive (NonReactive) 09/28/18 10:07 Hep Bs Antigen Non-reactive (Negative) 09/28/18 10:07 Hep B Core IgM Ab Non-reactive (NonReactive) 09/28/18 10:07 Non-reactive (NonReactive) 09/28/18 10:07 Active Medications - Current Medications Current Medications: Generic Name Dose Route Start Last Admin Trade Name Freq PRN Reason Stop Dose Admin Acetaminophen 650 mg 09/26/18 12:07 Tylenol PO Q4H PRN Pain MILD(1-3)/Fever >100.5/GARCÍA Acetaminophen/Hydrocodone Bitart 1 each 09/26/18 12:34 Horace 7.5/325 PO Q6HR PRN Pain Benzonatate 100 mg 09/26/18 13:00 09/26/18 18:54 Tessalon Perles PO 100 mg Q8H PRN Administration Cough Bisacodyl 10 mg 09/27/18 18:04 Dulcolax IA QDAY PRN Constipation Calcium Acetate 667 mg 09/27/18 10:00 09/27/18 10:04 Phoslo PO 667 mg QDDIAB THOMAS Administration Famotidine 10 mg 09/26/18 22:00 09/27/18 21:55 Pepcid PO 10 mg BID THOMAS Administration Gabapentin 300 mg 09/27/18 10:00 09/27/18 10:04 Neurontin PO 300 mg QDAY THOMAS Administration Hydrocodone Bit/Homatropine Methylb 10 ml 09/26/18 13:00 09/27/18 17:40 Hydromet PO 10 ml Q6H PRN Administration Cough Ceftriaxone Sodium 2 gm in 100 mls @ 200 mls/hr 09/28/18 10:00 Rocephin/Ns 2 Gm/100 Ml IV Q24HR THOMAS Sodium Chloride 100 mls @ 999 mls/hr 09/28/18 08:59 Nacl 0.9% IV PEG PRN Hypotension Insulin Glargine 20 units 09/26/18 22:00 06/03/19 22:02 Lantus SUB-Q 20 units QHS THOMAS Administration Insulin Human Lispro 10 unit 09/26/18 16:30 09/28/18 08:12 Humalog SUB-Q Not Given AC THOMAS Methylprednisolone Sodium Succinate 20 mg 09/26/18 22:00 09/27/18 21:55 Solu-Medrol IV 20 mg Q12HR THOMAS Administration Nifedipine 30 mg 09/27/18 10:00 09/27/18 10:04 Procardia Xl PO 30 mg QDAY THOMAS Administration Ondansetron HCl 4 mg 09/26/18 12:07 Zofran IV Q8H PRN Nausea And Vomiting Sodium Chloride 10 ml 09/26/18 22:00 09/28/18 10:13 Sodium Chloride Flush Syringe 10 Ml IV Not Given BID THOMAS Sodium Chloride 10 ml 09/26/18 12:07 Sodium Chloride Flush Syringe 10 Ml IV PRN PRN LINE FLUSH Tramadol HCl 50 mg 09/26/18 12:34 Ultram PO Q6HR PRN Pain Nutrition/Malnutrition Assess - Dietary Evaluation Nutrition/Malnutrition Findings: Nutrition Notes Start: 09/27/18 12:22 Freq: Status: Active Protocol: Document 09/27/18 12:22 LP (Rec: 09/27/18 12:24 LP [id number]) Nutrition Notes Need for Assessment generated from: MD Order Initial or Follow up Brief Note Subjective/Other Information Consult for oral supplement. 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 Would like Nepro. Pt denies wt loss. Nutrition Intervention Add Supplement/Snack (indicate name/kcal Nepro vanilla daily /protein ) Provides kCal: 425 Provides Protein (gm) 19 Revisit per MD consult or patient Sign Off request:
[2018-09-28] MEDS ORDERED: DULCOLAX PR ONE (14:00)
[2018-09-28] MEDS: PROCARDIA XL PO SCH (14:40)
[2018-09-28] MEDS: NEURONTIN PO SCH (14:40)
[2018-09-28] MEDS: PHOSLO PO SCH (14:40)
[2018-09-28] MEDS: PEPCID PO SCH ×2 (14:40→21:00)
[2018-09-28] MEDS: HYDROMET PO PRN ×2 (14:44→20:59)
[2018-09-28] MEDS: SOLU-Medrol IV SCH (17:48)
[2018-09-28] MEDS: LANTUS SUB-Q SCH (22:29)
[2018-09-29] MEDS: HumaLOG SUB-Q SCH ×3 (07:54→17:21)
[2018-09-29] MEDS ORDERED: D50W (25GM) Syringe IV PRN (08:50)
[2018-09-29] MEDS ORDERED: D50W (25GM) Vial IV ONE (08:50)
[2018-09-29] MEDS ORDERED: D50W (25GM) Syringe IV ONE (09:00)
[2018-09-29] MEDS: PHOSLO PO SCH (09:19)
[2018-09-29] MEDS: ROCEPHIN/NS 2 GM/100 ML 2 GM/100 ML BAG IV SCH (09:19)
[2018-09-29] MEDS: PEPCID PO SCH (09:19)
[2018-09-29] MEDS: NEURONTIN PO SCH (09:19)
[2018-09-29] MEDS: PROCARDIA XL PO SCH (09:19)
[2018-09-29] MEDS: SODIUM CHLORIDE FLUSH SYRINGE 10 ML IV SCH (09:20)
--- NOTE | 2018-09-29 10:16 | Progress Note ---
Assessment and Plan - Patient Problems (1) Pneumonia Current Visit: Yes Status: Acute Plan to address problem: cont IV ABXs with ceftriaxone, no renal adjustment needed. (2) ESRD (end stage renal disease) Current Visit: Yes Status: Acute Plan to address problem: no urgent indication for renal replacement therapy at present. cont HD on TTS schedule. (3) Anemia in ESRD (end-stage renal disease) Current Visit: Yes Status: Acute Plan to address problem: hb at target, no need for additional EPO at present (4) HTN (hypertension) Current Visit: Yes Status: Acute Qualifiers: Hypertension type: essential hypertension Qualified Code(s): I10 - Essential (primary) hypertension Plan to address problem: BP stable, resume home BP regimen (5) Secondary hyperparathyroidism (of renal origin) Current Visit: Yes Status: Acute Plan to address problem: resume home PO4 binders Subjective Date of service: 09/29/18 Principal diagnosis: CAP Interval history: Pt awake, alert, denies fever, chills, n/v/d; cough is resolving Objective - Vital Signs Vital signs: Vital Signs - 12hr 09/28/18 09/29/18 22:30 05:20 Temperature 98.0 F 97.8 F Pulse Rate 76 72 Respiratory 20 20 Rate Blood Pressure 126/62 114/58 O2 Sat by Pulse 92 91 Oximetry - General Appearance General appearance: well-developed, well-nourished, appears stated age EENT: ATNC, PERRL, mucous membranes moist Neck: no JVD Respiratory: Present: Ronchi Cardiology: regular, S1S2 Gastrointestinal: normoactive bowel sounds Integumentary: no rash, other (no edema ) Neurologic: no focal deficit, alert and oriented x3, gait normal, CN 3-12 intact Psychiatric: mood/affect appropriate, cooperative - Lab 09/28/18 04:53 09/28/18 04:53 Most recent lab results Calcium 8.0 mg/dL (8.4-10.2) L 09/28/18 04:53 Medications & Allergies - Medications Allergies/Adverse Reactions: Allergies No Known Allergies Allergy (Unverified 02/21/16 13:12) Home Medications: Home Medications Medication Instructions Recorded Confirmed Last Taken Type Insulin Aspart [NovoLOG Flexpen] 10 units SQ AC 02/21/16 09/27/18 09/25/18 History Insulin Glargine [Lantus VIAL] 20 units SQ QHS 02/21/16 09/27/18 09/25/18 History Active Medications: Generic Name Dose Route Start Last Admin Trade Name Freq PRN Reason Stop Dose Admin Acetaminophen 650 mg 09/26/18 12:07 Tylenol PO Q4H PRN Pain MILD(1-3)/Fever >100.5/GARCÍA Acetaminophen/Hydrocodone Bitart 1 each 09/26/18 12:34 B[place]ett 7.5/325 PO Q6HR PRN Pain Benzonatate 100 mg 09/26/18 13:00 09/26/18 18:54 Tessalon Perles PO 100 mg Q8H PRN Administration Cough Calcium Acetate 667 mg 09/27/18 10:00 09/29/18 09:19 Phoslo PO 667 mg QDDIAB THOMAS Administration Dextrose 50 ml 09/29/18 08:50 D50w (25gm) Syringe IV PRN PRN Hypoglycemia Famotidine 10 mg 09/26/18 22:00 09/29/18 09:19 Pepcid PO 10 mg BID THOMAS Administration Gabapentin 300 mg 09/27/18 10:00 09/29/18 09:19 Neurontin PO 300 mg QDAY THOMAS Administration Hydrocodone Bit/Homatropine Methylb 10 ml 09/26/18 13:00 09/28/18 20:59 Hydromet PO 10 ml Q6H PRN Administration Cough Ceftriaxone Sodium 2 gm in 100 mls @ 200 mls/hr 09/28/18 10:00 09/29/18 09:19 Rocephin/Ns 2 Gm/100 Ml IV 200 mls/hr Q24HR THOMAS Administration Sodium Chloride 100 mls @ 999 mls/hr 09/28/18 08:59 Nacl 0.9% IV PEG PRN Hypotension Insulin Glargine 20 units 09/26/18 22:00 09/28/18 22:29 Lantus SUB-Q Not Given QHS [facility] Insulin Human Lispro 0 unit 09/29/18 11:30 Humalog SUB-Q ACHS [facility] Protocol Nifedipine 30 mg 09/27/18 10:00 09/29/18 09:19 Procardia Xl PO 30 mg QDAY THOMAS Administration Ondansetron HCl 4 mg 09/26/18 12:07 Zofran IV Q8H PRN Nausea And Vomiting Sodium Chloride 10 ml 09/26/18 22:00 09/29/18 09:20 Sodium Chloride Flush Syringe 10 Ml IV 10 ml BID THOMAS Administration Sodium Chloride 10 ml 09/26/18 12:07 Sodium Chloride Flush Syringe 10 Ml IV PRN PRN LINE FLUSH
--- NOTE | 2018-09-29 10:29 | Discharge Summary ---
Providers - Providers Date of Admission: 09/26/18 12:08 Date of discharge: 09/29/18 Attending physician: DIAN DE LA CRUZ 09/26/18 12:51 Consult to Physician [CONS] Routine Comment: Consulting Provider: GAURI GALARZA Physician Instructions: Reason For Exam: ESRD 09/26/18 15:41 Consult to Dietitian/Nutrition [CONS] Routine Physician Instructions: Reason For Exam: Reason for Consult: Pt needs oral supplement [facility] Condition: Stable Hospital course: Patient is a 63 yo man with a history of ESRD on HD (T,R,Sa), DM, Migraine Headache and chronic LUE DVT not on anticoagulation who presented to [facility] ED with shortness of breath and productive cough of yellow sputum * CT chest wo contrast IMPRESSION: Bilateral geographic groundglass airspace opacities. Patchy airspace consolidation in the left lower lobe. Findings are nonspecific and can be seen with pulmonary edema related to congestive heart failure. More focal airspace consolidation left lower lobe could also be related to pulmonary edema or infectious process/pneumonia. There is prominent heart size and bilateral pleural effusions, which can be seen with congestive heart failure * 2D ECHO Conclusions: global LV systolic function is normal, est ef 55-60%, moderate to severe concentric LVH, left atrium mildly dilated, right heart chambers both mildly dilated, mild TR, evidence of mild pulmonary hypertension, RVSP calculated at 35 mmHG, trivial pericardial effusion * 2v CXR Impression: Apperance suggests interstitial infiltrate/edema, suspect additional alveolar infiltrate in the lingula and/or left lower lobe Discharge Diagnoses: -Pneumonia, LLL, Aspiration type, poa -ESRD (end stage renal disease) -HTN (hypertension) -Diabetes Mellitus type 2 on Insulin -Hypoglycemia due to meal time insulin -Cardiomyopathy -Constipated -Anemia in ESRD (end-stage renal disease) -Secondary hyperparathyroidism (of renal origin) Disposition: DC- TO HOME OR SELFCARE Time spent for discharge: 35 minutes Core Measure Documentation - Palliative Care Palliative Care/ Comfort Measures: Not Applicable - Core Measures Any of the following diagnoses?: none - VTE Discharge Requirements Deep Vein Thrombosis/Pulmonary Embolism Present on Admission: No Has pt received <5 days of overlap therapy or INR<2.0: No Anticoagulant overlap therapy prescribed at discharge: No Contraindication No Overlap Therapy order at DC: Not Indicated Exam - Physical Exam Narrative exam: Gen: WDWN, NAD, Awake, Alert, Orientated x 3 HEENT: NCAT, EOMI, PERRL, OP Clear Neck: supple, no adenopathy, no thyromegaly, no JVD CVS/Heart: RRR, normal S1S2, pulses present bilaterally Chest/Lungs: diminished bs bilateral but improved, Symmetrical chest exddfpansion, good air entry bilaterally GI/Abdomen: soft, NTND, good bowel sounds, no guarding or rebound /Bladder: no suprapubic tenderness, no CVA or paraspinal tenderness Extermity/Skin: left upper arm swelling, AVF present, no obvious rash MSK: FROM x 4 Neuro: CN 2-12 grossly intact, no new focal deficits Psych: calm - Constitutional Vitals: Temp Pulse Resp BP Pulse Ox 97.8 F 72 20 114/58 91 09/29/18 05:20 09/29/18 05:20 09/29/18 05:20 09/29/18 05:20 09/29/18 05:20 Plan Activity: other (no strenous activity unless cleared by PCP) Diet: renal Special Instructions: record daily BP diary, record blood sugar diary Follow up with: GAURI GALARZA MD [Staff Physician] - 7 Days AMANDA CUMMINS MD [Staff Physician] - 7 Days Prescriptions: Insulin Aspart [NovoLOG Flexpen] 10 units SQ AC PRN #1 insuln.pen PRN Reason: Hyperglycemia Calcium Acetate [Phoslo] 667 mg PO QDDIAB #30 capsule NIFEdipine XL [Procardia Xl] 30 mg PO QDAY #30 tablet Benzonatate [Tessalon Perles] 100 mg PO Q8H PRN 4 Days capsule PRN Reason: Cough levoFLOXacin [Levaquin TAB] 500 mg PO Q48HR 5 Days tablet
[2018-09-29 13:21] VITALS: BP 142/65
[2018-09-29] MEDS: TESSALON PERLES PO PRN (17:21)
== END 2018-09-29 17:30 | disposition home or self-care (01) | DRG 177 ==
LOC: ED 07:09 → 3A 12:08
PROVIDERS: ADMIT Internal Medicine; ATTEND Internal Medicine
PROC: 5A1D70Z Performance of Urinary Filtration, Intermittent, Less than 6 Hours Per Day (ICD-10-PCS; principal; 2018-09-27)
DX: J69.0 Pneumonitis due to inhalation of food and vomit (principal); N18.6 End stage renal disease; N25.81 Secondary hyperparathyroidism of renal origin; I42.9 Cardiomyopathy, unspecified; I12.0 Hypertensive chronic kidney disease with stage 5 chronic kidney disease or end stage renal disease; E11.22 Type 2 diabetes mellitus with diabetic chronic kidney disease; G43.909 Migraine, unspecified, not intractable, without status migrainosus; E11.649 Type 2 diabetes mellitus with hypoglycemia without coma; D63.1 Anemia in chronic kidney disease; K59.00 Constipation, unspecified; Z86.718 Personal history of other venous thrombosis and embolism; Z99.2 Dependence on renal dialysis; Z82.49 Family history of ischemic heart disease and other diseases of the circulatory system; Z79.84 Long term (current) use of oral hypoglycemic drugs; Z79.51 Long term (current) use of inhaled steroids; Z95.828 Presence of other vascular implants and grafts
CPT/HCPCS: 36415; 71046; 71250; 80048; 80053; 80074; 80202; 82140; 82962; 83880; 85007; 85025; 87040; 93306; 94760; G0378; J0696; J1815; J2920; J3370; J7040

== ENCOUNTER 2019-06-25 08:36 | Emergency (ER) | payer MEDICARE ==
[2019-06-25] MEDS ORDERED: SODIUM CHLORIDE 0.9% 500 ML 500 ML IV ONE (09:16)
--- NOTE | 2019-06-25 09:19 | Emergency Department Report ---
ED General Adult HPI - General Chief complaint: Weakness Stated complaint: POSS HYPOTENSION Time Seen by Provider: 06/25/19 09:10 Source: patient Mode of arrival: Stretcher Limitations: No Limitations - History of Present Illness Initial comments: Patient is 63 years old male with history of end-stage renal disease on hemodialysis, Thursday, and Thursday. Patient brought to the emergency room from a dialysis center by EMS for evaluation of low blood pressure. Patient stated that he reported to dialysis center and they found that his blood pressure is low and I asked him to come to the ER. Patient currently denying any symptoms other than just generalized weakness and decreased appetite for the last 2 weeks. Patient denied any chest pain or shortness of breath. No abdominal pain or diarrhea. - Related Data Previous Rx's Medication Instructions Recorded Last Taken Type Acetaminophen [Acetaminophen TAB] 325 mg PO Q4H PRN #15 tablet 09/29/18 Unknown Rx Benzonatate [Tessalon Perles] 100 mg PO Q8H PRN 4 Days capsule 09/29/18 Unknown Rx Calcium Acetate [Phoslo] 667 mg PO QDDIAB #30 capsule 09/29/18 Unknown Rx Gabapentin 300 mg PO QDAY #30 capsule 09/29/18 Unknown Rx Insulin Aspart (Nf) [NovoLOG 10 units SQ AC PRN #1 insuln.pen 09/29/18 Unknown Rx Flexpen] Insulin Glargine [Lantus VIAL] 20 units SQ QHS #1 vial 09/29/18 09/25/18 Rx NIFEdipine XL [Procardia Xl] 30 mg PO QDAY #30 tablet 09/29/18 Unknown Rx levoFLOXacin [Levaquin TAB] 500 mg PO Q48HR 5 Days tablet 09/29/18 Unknown Rx Allergies Allergy/AdvReac Type Severity Reaction Status Date / Time No Known Allergies Allergy Unverified 02/21/16 13:12 ED Review of Systems ROS: Stated complaint: POSS HYPOTENSION Other details as noted in HPI Comment: All other systems reviewed and negative Constitutional: denies: chills, fever Respiratory: denies: cough, shortness of breath Cardiovascular: denies: chest pain Gastrointestinal: denies: abdominal pain, nausea, vomiting, diarrhea, constipation, hematemesis, melena, hematochezia Neurological: weakness (Generalized). denies: headache, numbness, paresthesias, confusion, abnormal gait, vertigo ED Past Medical Hx - Past Medical History Previous Medical History?: Yes Hx Hypertension: Yes Hx Diabetes: Yes Hx Deep Vein Thrombosis: Yes (left upper AV graft) Hx Renal Disease: Yes Hx Headaches / Migraines: Yes Hx Asthma: Yes Hx HIV: No - Surgical History Past Surgical History?: Yes Hx Coronary Stent: No Hx Open Heart Surgery: No Hx Pacemaker: No Hx Internal Defibrillator: No Hx Cholecystectomy: No Hx Appendectomy: No Hx Breast Surgery: No Additional Surgical History: left arm fistula - Social History Smoking Status: Never Smoker Substance Use Type: Alcohol - Medications Home Medications: Home Medications Medication Instructions Recorded Confirmed Last Taken Type Acetaminophen [Acetaminophen TAB] 325 mg PO Q4H PRN #15 tablet 09/29/18 Unknown Rx Benzonatate [Tessalon Perles] 100 mg PO Q8H PRN 4 Days capsule 09/29/18 Unknown Rx Calcium Acetate [Phoslo] 667 mg PO QDDIAB #30 capsule 09/29/18 Unknown Rx Gabapentin 300 mg PO QDAY #30 capsule 09/29/18 Unknown Rx Insulin Aspart (Nf) [NovoLOG 10 units SQ AC PRN #1 insuln.pen 09/29/18 Unknown Rx Flexpen] Insulin Glargine [Lantus VIAL] 20 units SQ QHS #1 vial 09/29/18 09/27/18 09/25/18 Rx NIFEdipine XL [Procardia Xl] 30 mg PO QDAY #30 tablet 09/29/18 Unknown Rx levoFLOXacin [Levaquin TAB] 500 mg PO Q48HR 5 Days tablet 09/29/18 Unknown Rx ED Physical Exam - General Limitations: No Limitations General appearance: alert, in no apparent distress - Head Head exam: Present: atraumatic, normal inspection - Eye Eye exam: Present: normal appearance - ENT ENT exam: Present: normal exam, normal orophraynx, mucous membranes moist - Neck Neck exam: Present: normal inspection, full ROM. Absent: tenderness, meningismus, lymphadenopathy, thyromegaly - Respiratory Respiratory exam: Present: normal lung sounds bilaterally - Cardiovascular Cardiovascular Exam: Present: regular rate, normal rhythm, normal heart sounds - GI/Abdominal GI/Abdominal exam: Present: soft, normal bowel sounds. Absent: distended, tenderness, guarding, rebound, rigid, organomegaly, mass, bruit, pulsatile mass, hernia - Extremities Exam Extremities exam: Present: normal inspection, full ROM, normal capillary refill. Absent: tenderness, pedal edema, joint swelling, calf tenderness - Back Exam Back exam: Present: normal inspection, full ROM. Absent: CVA tenderness (R), CVA tenderness (L), muscle spasm, paraspinal tenderness, vertebral tenderness - Neurological Exam Neurological exam: Present: alert, oriented X3, CN II-XII intact, normal gait, reflexes normal - Psychiatric Psychiatric exam: Present: normal mood - Skin Skin exam: Present: warm, intact, normal color ED Course Vital Signs 06/25/19 06/25/19 08:54 11:07 Temperature 97.8 F Pulse Rate 80 75 Respiratory 16 16 Rate Blood Pressure 103/68 100/69 [Left] O2 Sat by Pulse 98 100 Oximetry ED Medical Decision Making - Lab Data Result diagrams: 06/25/19 09:21 06/25/19 09:21 - EKG Data -: EKG Interpreted by Me EKG shows normal: sinus rhythm Rate: normal - EKG Data Interpretation: no acute changes - Radiology Data Radiology results: report reviewed - Medical Decision Making Patient is 63 years old male with history of end-stage renal disease on hemodialysis, Thursday, and Thursday. Patient brought to the emergency room from a dialysis center by EMS for evaluation of low blood pressure. Patient stated that he reported to dialysis center and they found that his blood pressure is low and I asked him to come to the ER. Patient currently denying any symptoms other than just generalized weakness and decreased appetite for the last 2 weeks. Patient denied any chest pain or shortness of breath. No abdominal pain or diarrhea. Patient received 500 mL of normal saline. Blood pressure improved. Labs reviewed and is unremarkable including a potassium of 3.7. I discussed the patient with Dr. Ovalles, he advised that patient can be discharged home and follow-up with his dialysis center as a schedule. Patient discharged in a stable condition. Critical care attestation.: If time is entered above; I have spent that time in minutes in the direct care of this critically ill patient, excluding procedure time. ED Disposition Clinical Impression: ESRD (end stage renal disease), Hypotension Disposition: DC-01 TO HOME OR SELFCARE Is pt being admited?: No Condition: Stable Instructions: Chronic Kidney Disease (ED), Hypotension (ED) Referrals: PRIMARY CARE, [Primary Care Provider] - 3-5 Days GUARI GALARZA MD [Staff Physician] - 3-5 Days
[2019-06-25 09:40] LABS: Basophils # (Auto) 0.1 K/mm3 (0.0-0.1); Basophils % (Auto) 1.2 % (0.0-1.8); Eosinophils # (Auto) 0.1 K/mm3 (0.0-0.4); Eosinophils % (Auto) 1.8 % (0.0-4.3); Hematocrit 41.7 % (35.5-45.6); Lymphocytes # (Auto) 0.9 K/mm3 (1.2-5.4); Lymphocytes % (Auto) 17.1 % (13.4-35.0); Mean Corpuscular HGB Conc 34 % (32-34); Mean Corpuscular Volume 92 fl (84-94); Monocytes # (Auto) 0.8 K/mm3 (0.0-0.8); Monocytes % (Auto) 13.9 % (0.0-7.3); Platelet Count 150 K/mm3 (140-440); Red Blood Count 4.56 M/mm3 (3.65-5.03); Red Cell Distribution Width 16.9 % (13.2-15.2)
--- NOTE | 2019-06-25 09:50 | XRay Report ---
Chest single view INDICATION: Dyspnea IMPRESSION: Trace bilateral interstitial edema. No large pleural effusion. Signer Name: David Harrington MD Signed: 06/25/2019 9:45 AM Workstation Name: [email or web address]
[2019-06-25 10:00] LABS: Calcium 7.8 mg/dL (8.4-10.2)
[2019-06-25 12:41] VITALS: BP 102/67
== END 2019-06-25 13:22 | disposition home or self-care (01) ==
LOC: ED 08:36
DX: I12.0 Hypertensive chronic kidney disease with stage 5 chronic kidney disease or end stage renal disease (principal); E11.22 Type 2 diabetes mellitus with diabetic chronic kidney disease; N18.6 End stage renal disease; I95.9 Hypotension, unspecified; G43.909 Migraine, unspecified, not intractable, without status migrainosus; J45.909 Unspecified asthma, uncomplicated; Z99.2 Dependence on renal dialysis; Z79.4 Long term (current) use of insulin; Z79.899 Other long term (current) drug therapy; Z98.890 Other specified postprocedural states
CPT/HCPCS: 36415; 71045; 80048; 83735; 85025; 93005; 93010; 99284; J7040